=== PATIENT | female | born 1980 | race Caucasian/White ===

== ENCOUNTER → 2019-03-13 09:58 | Outpatient (CLI) | payer BC, SELFPAY ==
--- NOTE | ~2019-03-13 | XR_ITS ---
EXAMINATION: XR chest 2V 03/13/2019 10:38 INDICATION: Chest pain PROCEDURE: 2 view chest COMPARISON: 09/17/2018 FINDINGS: The lungs are clear. The cardiomediastinal silhouette is within normal limits. There are no pleural effusions. There is no pneumothorax suspected. IMPRESSION: 1: NO ACUTE CARDIOPULMONARY DISEASE. Reviewed, dictated and finalized at location B. 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
== END ==
PROVIDERS: PCP Family Medicine; Visit Provider Family Medicine
DX: R07.89 Other chest pain (principal)
CPT/HCPCS: 71046

== ENCOUNTER 2020-06-16 11:00 | Outpatient (CLI) | payer BC, SELFPAY | END 2020-06-16 11:01 | disposition home or self-care (01) | LOC: ANHCOVIDVC 11:00 | PROVIDERS: PCP Family Medicine | DX: Z23 Encounter for immunization (principal) | CPT/HCPCS: 0001A; 91300 ==

== ENCOUNTER 2020-07-07 11:01 | Outpatient (CLI) | payer BC, SELFPAY | END 2020-07-07 11:02 | disposition home or self-care (01) | LOC: ANHCOVIDVC 11:01 | PROVIDERS: PCP Family Medicine | DX: Z23 Encounter for immunization (principal) | CPT/HCPCS: 0002A; 91300 ==

== ENCOUNTER → 2021-01-27 08:47 | Outpatient (CLI) | payer BC, SELFPAY ==
[2021-01-27 13:20] LABS: Influenza Control Positive
== END ==
PROVIDERS: PCP Family Medicine; Visit Provider Nurse Practitioner Family
DX: R05.9 Cough, unspecified (principal); R09.89 Other specified symptoms and signs involving the circulatory and respiratory systems
CPT/HCPCS: 87804

== ENCOUNTER → 2021-01-27 14:20 | Outpatient (CLI) | payer BC, SELFPAY ==
--- NOTE | ~2021-01-27 | US_ITS ---
EXAMINATION: US thyroid DATE: 01/27/2021 15:00 INDICATION: Nontoxic goiter. TECHNIQUE: Multiple ultrasound images of the thyroid were obtained. COMPARISON: None. FINDINGS: The right thyroid lobe measures 4.7 x 1.5 x 1.4 cm. The left thyroid lobe measures 3.4 x 1.4 x 1.5 c m. There is normal echotexture and echogenicity throughout the thyroid gland. No discrete nodules id entified. Normal vascular flow is present. IMPRESSION: 1. Normal thyroid. Reviewed, dictated and finalized at location A. 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 Normal thyroid.
--- NOTE | ~2021-01-27 | MM_ITS ---
EXAMINATION: MM diagnostic sarah BI w louis HISTORY: Bilateral breast pain TECHNIQUE: ML, MLO and craniocaudal 3-D tomosynthesis images of both breasts were performed and synth etic 2-D images were generated. CAD analysis was submitted and interpreted. COMPARISON: None BREAST PARENCHYMAL COMPOSITION: There are scattered areas of fibroglandular density. FINDINGS: No suspicious mass or architectural distortion, malignant calcification, skin thickening or retraction is detected. IMPRESSION: 1. No mammographic evidence of malignancy 2. Routine mammographic screening is recommended. BI-RADS Category 1: Negative Reviewed, dictated and finalized at location A. 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
== END ==
PROVIDERS: PCP Family Medicine; Visit Provider Internal Medicine Endocrinology, Diabetes & Metabolism
DX: N64.4 Mastodynia (principal); E04.9 Nontoxic goiter, unspecified
CPT/HCPCS: 76536; 77062; 77066; G0279

== ENCOUNTER 2021-06-25 14:21 | Outpatient (RCR) | payer BC, SELFPAY ==
[2021-06-25 15:20] VITALS: BP 118/68; PULSE 90; RESP 20; TEMP 36.6; O2SAT 100
[2021-06-25] MEDS: diphenhydrAMINE HCl CAP 25 MG CAPSULE PO (15:22)
[2021-06-25] MEDS: ACETAMINOPHEN 325 MG TABLET 650 MG PO (15:22)
[2021-06-25] MEDS: FAMOTIDINE 20 MG TABLET PO (15:22)
[2021-06-25] MEDS: BEBTELOVIMAB 175 MG/2 ML VIAL IV PUSH (15:49)
[2021-06-25 16:33] VITALS: BP 112/69; PULSE 71; TEMP 36.4; O2SAT 99
== END 2021-06-25 16:00 ==
LOC: AMCINF 14:21
PROVIDERS: Referring Provider Family Medicine; Visit Provider Internal Medicine Hematology & Oncology
DX: U07.1 COVID-19 (principal)
CPT/HCPCS: A9270; M0222; Q0222

== ENCOUNTER → 2021-07-16 08:46 | Outpatient (CLI) | payer BC, SELFPAY ==
--- NOTE | ~2021-07-16 | XR_ITS ---
EXAMINATION: XR thoracic spine 2V DATE: 07/16/2021 09:14 INDICATION: Thoracic back pain TECHNIQUE: AP, lateral and lateral swimmer's views of the thoracic spine were obtained. COMPARISON: 09/17/2018 FINDINGS: There is no fracture, dislocation, or subluxation. The vertebral body heights, alignment, a nd intervertebral disc spaces are normal. IMPRESSION: 1. Unremarkable thoracic spine radiographs. Reviewed, dictated and finalized at location A.
== END ==
PROVIDERS: PCP Family Medicine; Visit Provider Family Medicine
DX: M54.6 Pain in thoracic spine (principal)
CPT/HCPCS: 72070

== ENCOUNTER 2021-08-19 14:42 | Outpatient (CLI) | payer BC, SELFPAY ==
--- NOTE | ~2021-08-19 | MR_ITS ---
EXAMINATION: MR thoracic spine wo con DATE: 08/19/2021 15:35 INDICATION: Right-sided back pain over one year. No trauma. TECHNIQUE: Magnetic resonance imaging (MRI) of the thoracic spine was performed without intravenous c ontrast. Sagittal localizer T1-weighted FSE of the cervical spine was obtained. Thoracic spine sequen elena included sagittal T2-weighted FSE, sagittal T1-weighted FSE, sagittal T2-weighted FS FSE, and axi al T2-weighted FSE. COMPARISON: X-ray thoracic spine, 07/16/2021 FINDINGS: No significant scoliosis. The marrow signal is benign and homogenous. Multiple small Schmor l's nodes. Vertebral bodies are aligned. Mild disc height loss, disc dehydration, and mild diffuse di sc bulges at T10-11 and T11-12. Vertebral body heights are intact. Mild multilevel facet arthropathy in the lower thoracic spine. The cord is normal in signal and caliber. Conus terminates at T12-L1. IMPRESSION: 1. Mild degenerative disc disease at T10-T11 and T11-12. 2. Mild lower thoracic facet arthropathy. Reviewed, dictated and finalized at location K.
== END 2021-08-19 14:43 ==
PROVIDERS: PCP Family Medicine; Visit Provider Nurse Practitioner Family
DX: M47.814 Spondylosis without myelopathy or radiculopathy, thoracic region (principal)
CPT/HCPCS: 72146

== ENCOUNTER 2021-08-24 12:30 | Outpatient (RCR) | payer BC, SELFPAY ==
--- NOTE | 2021-06-18 10:30 | PTOPEVAL ---
PHYSICAL THERAPY EVALUATION AND PLAN OF CARE 06-18-21 Thank you for referring Nicolette Vaughan to [facility] for the diagnosis of thoracic pain and chronic pain.? Nicolette is scheduled to be seen for therapy? 2 x/week for 4 weeks. Please review, sign, date and return this plan of care SREE. I agree with and certify that the following plan of care is medically necessary. Referring Physician Date Attending Provider: Nitin Navarrete MD Past Medical History Source of Past Medical History Patient Neurological History Hx Neurological Disorders No Significant History Cardiovascular History Hx Cardiac Disorders No Significant History Respiratory History Hx Respiratory Disorders No Significant History Gastrointestinal History Hx Gastrointestinal Disorders No Significant History Genitourinary History Hx Genitourinary Disorders No Significant History Musculoskeletal History Hx Back Pain Yes: chronic back and hip pain Hx Orthopedic Surgery Yes: L shoulder surgery-repair and clavicular resection Endocrine History Hx Endocrine Disorders No Significant History HEENT History Hx Other HEENT Disorders Yes: seasonal allergies Evaluation Information Diagnosis thoracic pain, chronic pain Onset about one year Subjective Information R rib pops in/out and usually Query Text:As Reported By Patient/ OK after few days-has happened Family forever, but past year hurts all time; gradual increase in pain and not going away; have had chiropractor adjustments, massage, accupuncture-- not helping; have changed work chair, position for sleeping, work out routines; had injections, 3x about year ago, between ribs and did not help; Diagnostic Tests X-Rays For This Problem Yes: in past:per pt:R hip issues-not in socket right MRI For This Problem No Other Tests For This Problem No Level of Function 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
--- NOTE | 2021-07-07 08:10 | PCPTNOTE ---
Patient called & cancelled scheduled appointment this date due to covid exposure.
--- NOTE | 2021-07-16 08:41 | PTOPEVAL ---
PHYSICAL THERAPY REEVALUATION AND UPDATED PLAN OF CARE 07-16-21 Refer to the clinical summary below, for her status today, compared to the initial evaluation. Her progress was limited, she only had 4 appointments, due to being ill with COVID. Continue PT treatment 1x/week for 6 weeks. Thank you for referring Nicolette Vaughan to [facility].? Please review, sign, date and return this plan of care SREE. I agree with and certify that the following plan of care is medically necessary. Referring Physician Date Attending Provider: Nitin Navarrete MD Subjective Information Nicolette reports: recovering Query Text:As Reported By Patient/ from [facility], am still tired, Family but better; feel like about the same as when started PT; do the home exercises; only had dry needling once, may have helped some but painful; have been going to massage therapist; to have xrays of her back today, delayed in getting done since ill; want to continue dry needling; is doing exercises with her ict trainer and does not really want to do them here; she has a high deductible and paying out of pocket at this time for her therapy treatments; Pain Assessment Pain Scale Pain Scale Used Numeric (1 - 10) Self Report Pain Assessment Right Spine, Thoracic Reported Pain Level 6 Pain Description Tightness Radicular Pain Location R lateral thoracic area tender to touch Pain Frequency Chronic,Continuous Other Pain Description more than bad ache, pinch at times, sharp at times Lowest Pain Intensity 4 Greatest Pain Intensity 6 Other Pain Aggravating Factors twisting trunk; taking deep breath;awaken 4-5 x/night with pain Pain Score Pain Score 6: Self Report Additional Pain Score Comments Oswestry self assessment score 24% limitation in activity level; also reports pain in neck, shoulder and low back; all muscles are tight and always sore; Interventions Used Interventions Used By Clinicians Education,Exercise Other Alleviating Interventions stretch, ice, sea salt bath soaks Thoracic/Lumbar Comments standing trunk ROM: extensi
--- NOTE | 2021-08-12 09:11 | PCPTNOTE ---
Patient did not show up for scheduled appointment this date.
--- NOTE | 2021-08-24 14:53 | PTOPEVAL ---
PHYSICAL THERAPY DISCHARGE NOTE Thank you for referring Nicolette Vaughan to [facility].? Please review, sign, date and return this plan of care SREE. I agree with and certify that the following plan of care is medically necessary. Referring Physician Date Status: Active Diagnosis thoracic pain, chronic pain Onset about one year Subjective Information Nicolette reports that she is Query Text:As Reported By Patient/ feels a little better overall. 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 She is not sure she finds dry needling to be very productive because she has a lot of post treatment soreness/pain. Self Report Pain Assessment Right Spine, Thoracic Reported Pain Level 4 Pain Description Tightness Radicular Pain Location R lateral thoracic area tender to touch Pain Frequency Chronic,Continuous Other Pain Description more than bad ache, pinch at times, sharp at times Lowest Pain Intensity 4 Greatest Pain Intensity 6 Other Pain Aggravating Factors twisting trunk; taking deep breath;awaken 4-5 x/night with pain Pain Score Pain Score 4: Self Report Interventions Used Interventions Used By Clinicians Education,Exercise Pain Relief Interventions Used By Position Change Patient Other Alleviating Interventions stretch, ice, sea salt bath soaks Cervical and Lumbar ROM Lumbar ROM Lumbar Comments standing trunk ROM: extension - increase pain in thoracic area; rotation to R slight pain increase; all ranges WNL and symmetrical Upper Extremity Range of Motion General Upper Extremity Range of Motion Gross Upper Extremity Range of Motion left shoulder internal Comments rotation limited compared to right but WNL Upper Extremity Muscle Strength Testing General Upper Extremity Strength Gross Upper Extremity Strength Comments functional thoracic strength testing:
== END 2021-08-25 09:02 | disposition home or self-care (01) ==
LOC: ANHPT 12:30
PROVIDERS: PCP Family Medicine; Visit Provider Family Medicine
DX: M54.6 Pain in thoracic spine (principal); G89.29 Other chronic pain
CPT/HCPCS: 97014; 97110; 97112; 97140; 97162; G0283

== ENCOUNTER 2021-11-05 15:32 | Emergency (ER) | payer BC, SELFPAY ==
[2021-11-05 15:44] VITALS: BP 135/97; PULSE 100; RESP 12; TEMP 35.9; O2SAT 100
[2021-11-05 15:46] VITALS: BP 135/97; PULSE 100; RESP 12; TEMP 35.9; O2SAT 100
--- NOTE | 2021-11-05 16:01 | ED.GENADULT ---
HPI - General Adult General Chief complaint: Dizziness Stated complaint: dizziness, nausea, headache History of Present Illness HPI narrative: 41 y/o female. PMHx MDD Seasonal allergies. Presents to [facility] clinic today with acute complaints of HONG, dizziness, left eye twitching, and nausea for the past 5 days. Client reports a generalized HONG, without closed head injury or falls. No fever, neck pain. No focal weakness or speech deficits. She describes and intermittent and 'throbbing' pain type sensation. In addition, she tells me she has felt dizzy 'like the room is spinning'. Worse with movement. No LOC. No visual changes, otalgia. No chest pain, palpitations, dyspnea. Positive nausea the initial few days, however she tells me her nausea is now gone, improved in last 48 hours. No abdominal pain. No vomiting or loose stool. Denies urinary concerns. Does endorse a hoarse voice & sore throat, no dysphagia. She tells me she has also recently had her Wellbutrin up-titrated in the past few weeks. Just 'does not feel right'. No additional acute c/o upon PE. Related Data Home Medications Medication Instructions Recorded Confirmed spironolactone 50 mg tablet 50 mg PO BID 03/17/21 11/05/21 triamcinolone acetonide 55 mcg 1 spray intranasal DAILY 11/05/21 11/05/21 nasal spray aerosol (Nasacort) Allergies Allergy/AdvReac Type Severity Reaction Status Date / Time Sulfa (Sulfonamide Allergy Unknown Unknown Verified 11/05/21 15:44 Antibiotics) Review of Systems Review of Systems: CONSTITUTIONAL: Denies fever, chills, sweats. EYES: Denies visual changes, redness, discharge. ENT: Denies rhinorrhea, congestion, otalgia. Positive hoarse voice and sore throat. CARDIOVASCULAR: Denies chest pain, palpitations, edema. RESPIRATORY: Denies dyspnea, wheezing, cough GASTROINTESTINAL: Interval Nausea. Denies abdominal pain,vomiting, diarrhea. GENITOURINARY: Denies dysuria, hematuria, abnormal discharge SKIN: Denies rash or itching. MUSCULOSKELETAL: Denies acute back pain, joint pain, or myalgia. NEUROLOGIC: HONG, Dizziness. Denies numbness, or focal weakness. PSYCHIATRIC: Denies anxiety or depression. [facility] Past Medical History Medical History Abdominal pain Abnormal Pap smear of cervix 08/05/2015 - LGSIL/HPV+; 04/21/16 ascus (+) hpv; 01/27/17 (+) hpv; 02-05-19 LSIL(+) hpv 02/01/2020 +hpv; 02/11/2021 Lgsil +hpv Abnormal serum iron level total iron 164 with 47% saturation and ferritin 120 with hemoglobin 14.3 on 12/23/2020. Acute bronchitis Allergies Atypical chest pain BMI 31.0-31.9,adult BMI 32.0-32.9,adult Cellulitis Chest congestion Chronic anxiety Chronic thoracic back pain X-ray of the thoracic spine 07/16/2021 unremarkable. Cough COVID-19 (06/22/21) positive home test 06/24/2021. Fully vaccinated. Elevated liver enzymes AST normal at 25 with ALT slightly elevated at 31 on 12/23/2020 Encounter for IUD insertion 02/17/12 02/10/17 Encounter for IUD removal 02/10/17 Encounter for wellness examination in adult Hirsutism History of PCR DNA positive for HSV2 Hypercholesterolemia with hyperglyceridemia Mixed hyperlipidemia Total cholesterol 223, triglycerides 378, HDL 50, LDL 119 on 12/23/2020 Obesity (BMI 30.0-34.9) Ovarian cyst Polyp of colon abnormal colon polyp age 33 Dr. Fisher Seasonal allergic rhinitis Seborrheic eczema of scalp Shortness of breath Tobacco abuse Vaping nicotine. Surgical History Surgical History H/O shoulder surgery 04/29/15 lt shoulder bone spurs 03/2014 lt shoulder History of colonoscopy with polypectomy 07-05-2013 polyps and internal hemorrhoids (recommendation to repeat in 5 years), flat polyps - proximal ascending colon, transverse colon and distal sigmoid colon; internal hemorrhoids History of colposcopy with cervical biopsy
== END 2021-11-05 16:42 | disposition short-term general hospital (02) ==
PROVIDERS: Emergency Provider Nurse Practitioner Adult Health; PCP Family Medicine
DX: R42 Dizziness and giddiness (principal); E78.2 Mixed hyperlipidemia; E66.9 Obesity, unspecified; Z68.32 Body mass index [BMI] 32.0-32.9, adult; Z86.16 Personal history of COVID-19
CPT/HCPCS: 87426; 99213; C9803; G0463

== ENCOUNTER 2021-11-05 17:06 | Emergency (ER) | payer BC, SELFPAY ==
[2021-11-05] VITALS (13 sets, daily range): BP systolic 105–140; BP diastolic 65–88; PULSE 67–102; RESP 11–26; TEMP 36.6; O2SAT 97–100
[2021-11-05 18:18] LABS: Basophils Absolute Auto 0.1 K/mm3 (0.0-0.1); Basophils Percent Auto 0.7 % (0.2-1.2); Eosinophils Absolute Auto 0.2 K/mm3 (0-0.3); Eosinophils Percent Auto 2.2 % (0-4.4); Hematocrit 43.7 % (37.0-47.0); Hemoglobin 15.1 g/dL (12.0-15.0); Immature Granulocyte Absolute 0.02 K/mm3 (0.00-0.031); Immature Granulocyte Percent A 0.3 % (0-0.5); Lymphocytes Percent Auto 22.2 % (18.3-44.2); Mean Corpuscular HGB Conc 34.6 g/dl (32-36); Mean Corpuscular Hemoglobin 32.4 pg (26-34); Mean Corpuscular Volume 93.8 fl (80-100); Mean Platelet Volume 9.4 fl (7.4-10.4); Monocytes Absolute Auto 0.5 K/mm3 (0.1-0.6); Monocytes Percent Auto 7.5 % (2.6-8.5); Neutrophils Absolute Auto 4.8 K/mm3 (1.3-6.7); Neutrophils Percent Auto 67.1 % (45.5-73.1); Platelet Count Result 354 k/mm3 (150-375); Red Blood Count 4.66 M/mm3 (4.2-5.4); Red Cell Distribution Width 11.9 % (11.5-14.5); White Blood Count 7.2 K/mm3 (4.5-10.0)
[2021-11-05 18:29] LABS: Alanine Aminotransferase 38 U/L (6-35); Albumin Level 4.8 g/dL (3.5-5.1); Alkaline Phosphatase 65 U/L (38-126); Anion Gap 10 mmol/L (8-16); Aspartate Amino Transferase 35 U/L (14-36); Bilirubin,Total 0.5 mg/dL (0.2-1.3); Blood Urea Nitrogen 13 mg/dL (7-17); Calcium 9.6 mg/dL (8.4-10.2); Carbon Dioxide 23 mmol/L (22-30); Chloride 105 mmol/L (98-107); Estimated CRCL calculation 69 ml/min; Estimated Glomerular Filt Rate > 60; Glucose 94 mg/dL (65-110); Lipase 133 U/L (23-300); Sodium 138 mmol/L (137-145)
[2021-11-05 19:15] LABS: Appearance Urine Cloudy (Clear); Bilirubin Urine 1+ (Negative); Blood Urine Trace-lysed (Negative); Color Urine Yellow (Yellow); Glucose Urine UA Negative (Negative); Ketones Urine Negative (Negative); Leukocyte Esterase Ur 1+ LEU/UL (Negative); Nitrate Urine Negative (Negative); Protein Urine Trace mg/dL (Negative); Specific Grav Ur >= 1.030 (1.001-1.035); Urobilinogen Urine 0.2 mg/dL (<2.0); pH Urine 5.5 (5.0-9.0)
[2021-11-05 19:23] LABS: Bacteria Urine Trace /hpf; Mucus Urine Moderate /lpf; Squamous Epithelial Cell Urine Many /hpf (Few); WBC Urine 31-50 /hpf
[2021-11-05 19:25] LABS: Add Urine Microscopic? YES
[2021-11-05] MEDS: SODIUM CHLORIDE 0.9% IV 1,000 ML 999 ML IV CONT (20:02)
[2021-11-05] MEDS: ONDANSETRON INJ 4 MG/2 ML VIAL IV PUSH (20:02)
--- NOTE | 2021-11-05 20:39 | ED.GENADULT ---
HPI - General Adult General Chief complaint: Dizziness Stated complaint: dizzy, nausea Time Seen by Provider: 11/05/21 19:05 History of Present Illness HPI narrative: Patient is a 41-year-old female who presents ER with dizziness. Intermittent over the last 2 to 3 days. Has been eating and drinking without issue. She will become nauseated. Not spinning in nature. No chest pain or chest pressure. Reports mild cough with fatigue. No sinus congestion or sore throat. No documented fevers. No alleviating factors. Related Data Home Medications Medication Instructions Recorded Confirmed spironolactone 50 mg tablet 50 mg PO BID 03/17/21 11/05/21 triamcinolone acetonide 55 mcg 1 spray intranasal DAILY 11/05/21 11/05/21 nasal spray aerosol (Nasacort) Allergies Allergy/AdvReac Type Severity Reaction Status Date / Time Sulfa (Sulfonamide Allergy Unknown Unknown Verified 11/05/21 17:49 Antibiotics) Review of Systems Review of Systems: All systems reviewed & are unremarkable except as noted in HPI and below Constitutional: Constitutional: Denies chills, Reports fatigue and Denies fever(s) ENT: Denies nasal congestion and Reports sore throat Cardiovascular: Cardiovascular: Denies chest pain and Denies radiating jaw, neck or arm pain Respiratory: Respiratory: Reports cough, Denies dyspnea and Denies wheezing Gastrointestinal: Gastrointestinal: Denies abdominal pain, Denies diarrhea, Reports nausea and Denies vomiting Neurologic: Reports dizziness and Denies syncope [facility] Past Medical History Medical History Abdominal pain Abnormal Pap smear of cervix 08/05/2015 - LGSIL/HPV+; 04/21/16 ascus (+) hpv; 01/27/17 (+) hpv; 02-05-19 LSIL(+) hpv 02/01/2020 +hpv; 02/11/2021 Lgsil +hpv Abnormal serum iron level total iron 164 with 47% saturation and ferritin 120 with hemoglobin 14.3 on 12/23/2020. Acute bronchitis Allergies Atypical chest pain BMI 31.0-31.9,adult BMI 32.0-32.9,adult Cellulitis Chest congestion Chronic anxiety Chronic thoracic back pain X-ray of the thoracic spine 07/16/2021 unremarkable. Cough COVID-19 (06/22/21) positive home test 06/24/2021. Fully vaccinated. Elevated liver enzymes AST normal at 25 with ALT slightly elevated at 31 on 12/23/2020 Encounter for IUD insertion 02/17/12 02/10/17 Encounter for IUD removal 02/10/17 Encounter for wellness examination in adult Hirsutism History of PCR DNA positive for HSV2 Hypercholesterolemia with hyperglyceridemia Mixed hyperlipidemia Total cholesterol 223, triglycerides 378, HDL 50, LDL 119 on 12/23/2020 Obesity (BMI 30.0-34.9) Ovarian cyst Polyp of colon abnormal colon polyp age 33 Dr. Fisher Seasonal allergic rhinitis Seborrheic eczema of scalp Shortness of breath Tobacco abuse Vaping nicotine. Surgical History Surgical History H/O shoulder surgery 04/29/15 lt shoulder bone spurs 03/2014 lt shoulder History of colonoscopy with polypectomy 07-05-2013 polyps and internal hemorrhoids (recommendation to repeat in 5 years), flat polyps - proximal ascending colon, transverse colon and distal sigmoid colon; internal hemorrhoids History of colposcopy with cervical biopsy 03/09/1708/2015 History of gynecologic surgery 10/13 cervical acid wash Family History Family History Mother Family history of thyroid disease Father Hypertension Diabetes mellitus Social History Social History Smoking status: Never smoker Tobacco type: e-cigarettes/vaping Smoking end date: 02/28/01 Alcohol intake: current Alcohol use details: Pt drinks weekly. 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
[2021-11-05] MEDS: KETOROLAC 30 MG/ML VIAL (*BKC) IV PUSH (21:11)
[2021-11-05 21:26] LABS: SARS-CoV-2 RNA PCR Negative
[2021-11-05] MEDS: CEPHALEXIN 500 MG CAPSULE PO (21:52)
== END 2021-11-05 22:00 | disposition home or self-care (01) ==
PROVIDERS: Emergency Medicine; Emergency Provider Emergency Medicine; PCP Family Medicine
DX: N39.0 Urinary tract infection, site not specified (principal); Z20.822 Contact with and (suspected) exposure to COVID-19; E78.2 Mixed hyperlipidemia; E66.9 Obesity, unspecified; Z68.33 Body mass index [BMI] 33.0-33.9, adult; L68.0 Hirsutism; F41.9 Anxiety disorder, unspecified; Z86.16 Personal history of COVID-19; Z86.010 Personal history of colon polyps; Z87.891 Personal history of nicotine dependence
CPT/HCPCS: 36415; 80053; 81001; 81025; 83690; 85025; 87086; 87088; 96361; 96374; 96375; 99284; A9270; C9803; J1885; J2405; J7030; U0003; U0005

== ENCOUNTER → 2022-04-15 13:45 | Outpatient (CLI) | payer BC, SELFPAY ==
--- NOTE | ~2022-04-15 | MM_ITS ---
EXAMINATION: MM screening sarah BI w louis HISTORY: Screening mammogram TECHNIQUE: Craniocaudal and mediolateral oblique 3-D tomosynthesis images were obtained and synthetic 2-D images were generated. CAD analysis was submitted and interpreted. COMPARISON: 01/27/2021, 06/09/2015 bilateral mammogram examinations BREAST PARENCHYMAL COMPOSITION: There are scattered areas of fibroglandular density. FINDINGS: There is no evidence of suspicious mass, calcification, or architectural distortion to sugg est malignancy in either breast. There has been no suspicious interval change. IMPRESSION: 1. No mammographic evidence of malignancy. 2. Recommend routine screening mammography in one year. BI-RADS Category 1: Negative Reviewed, dictated and finalized at location A. 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
== END ==
PROVIDERS: PCP Family Medicine; Visit Provider Obstetrics & Gynecology
DX: Z12.31 Encounter for screening mammogram for malignant neoplasm of breast (principal)
CPT/HCPCS: 77063; 77067

== ENCOUNTER 2022-09-17 00:20 | Day surgery (SDC) | payer BC, SELFPAY ==
[2022-09-06 13:51] VITALS: BMI 29.5
--- NOTE | 2022-09-16 18:59 | PM.HPGS ---
History of Present Illness History of Present Illness Consent: Risks, benefits, and alternatives have been discussed and questions answered. Patient agrees to proceed with procedure. Chief complaint: colon polyp Narrative: Nicolette Vaughan is a 42 year old female Who has a history of polyps. Also her paternal grandmother had colon cancer Review of Systems Review of Systems: All systems reviewed & are unremarkable except as noted in HPI and below PMFSH Past Medical History Medical History Abdominal pain Abnormal Pap smear of cervix 08/05/2015 - LGSIL/HPV+; 04/21/16 ascus (+) hpv; 01/27/17 (+) hpv; 02-05-19 LSIL(+) hpv 02/01/2020 +hpv; 02/11/2021 Lgsil +hpv Abnormal serum iron level total iron 164 with 47% saturation and ferritin 120 with hemoglobin 14.3 on 12/23/2020. iron 142 with 41% saturation and ferritin 112 on 01/28/2022. Acute bronchitis Allergies Asthma Atypical chest pain BMI 31.0-31.9,adult BMI 32.0-32.9,adult Cellulitis Chest congestion Chronic anxiety Chronic thoracic back pain X-ray of the thoracic spine 07/16/2021 unremarkable. Cough COVID-19 (06/22/21) positive home test 06/24/2021. Fully vaccinated. COVID-19 (02/04/22) 2nd episode tested positive 02/08/2022. Elevated liver enzymes AST normal at 25 with ALT slightly elevated at 31 on 12/23/2020 Encounter for IUD insertion 02/17/12 02/10/17 Encounter for IUD removal 02/10/17 Encounter for wellness examination in adult Bjorn's thyroiditis TSH 4.94, free T4 1.2, T3 total 4.0 on 01/28/2022 , Dr. Arreola. Hirsutism Testosterone level 25 on 01/28/2022. History of PCR DNA positive for HSV2 Hypercholesterolemia with hyperglyceridemia Mixed hyperlipidemia Total cholesterol 223, triglycerides 378, HDL 50, LDL 119 on 12/23/2020. Cholesterol 250, triglycerides 354, HDL 57, LDL 139 with ratio of 4.4 on 01/28/2022. Obesity (BMI 30.0-34.9) Ovarian cyst Polyp of colon colon polyps on 07/05/2013 Dr. Fisher Screening mammogram, encounter for Normal mammogram 04/15/2022. Seasonal allergic rhinitis Seborrheic eczema of scalp Shortness of breath Tobacco abuse Vaping nicotine. Vitamin B12 deficiency level low at 280 on 01/28/2022. Surgical History Surgical History H/O shoulder surgery 04/29/15 lt shoulder bone spurs 03/2014 lt shoulder History of colonoscopy with polypectomy 07-05-2013 polyps and internal hemorrhoids (recommendation to repeat in 5 years), flat polyps - proximal ascending colon, transverse colon and distal sigmoid colon; internal hemorrhoids History of colposcopy with cervical biopsy 03/09/1708/2015 History of gynecologic surgery 10/13 cervical acid wash Family History Family History Mother Family history of thyroid disease Father Hypertension Diabetes mellitus Social History Social History Smoking packs per day: 0.5 Smoking cigarettes per day: 10.0 Years smoked: 15 Smoking pack-years: 7.50 Smoking status: Former smoker Tobacco type: cigarettes Smoking end date: 02/28/01 Alcohol intake: current Drinks per week: 2 Alcohol use details: Pt drinks weekly. 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
--- NOTE | 2022-09-17 07:30 | WPDANESEPPF ---
Anes - Initial Pre Proc Eval Procedure: Operation Date: 09/17/22 08:30 Proposed Procedures p Colonoscopy - Ghulam Elias MD Date/Time: 09/17/22 07:30 Surgeon: Ghulam Elias MD Pre Op Diagnosis: colon polyp Patient Data Age: 42 Gender: F Height: 1.55 m Weight: 71 kg Allergies Allergy/AdvReac Type Severity Reaction Status Date / Time Sulfa (Sulfonamide Allergy Unknown rash Verified 09/17/22 07:40 Antibiotics) Home Medications Medication Instructions Recorded Confirmed Type albuterol sulfate 90 mcg/actuation 2 puff inhalation Q4-6H PRN 02/16/19 09/17/22 Rx aerosol inhaler (ProAir HFA) bronchospasm #8.5 grams cyanocobalamin (vitamin B-12) 1,000 mcg IM WEEKLY 04/01/22 09/17/22 History 1,000 mcg/mL injection kit levonorgestrel 21 mcg/24 hours (8 1 device intrauterine ONCE 04/01/22 09/17/22 History yrs) 52 mg intrauterine device (Mirena) phentermine 15 mg capsule 15 mg PO QAM 04/01/22 09/17/22 History spironolactone 50 mg tablet 100 mg PO QAM 04/01/22 09/17/22 History bupropion HCl 150 mg 24 hr tablet, 150 mg PO QAM #30 tabs 06/24/22 09/17/22 Rx extended release (Wellbutrin XL) Patient hx anesthesia problems: none Family hx anesthesia problems: none Results Review: All pre-operative results and documents have been reviewed as part of the pre-operative evaluation. [facility] Past Medical History Medical History (Updated 09/17/22 @ 07:31 by Yohan Sr MD) Abdominal pain Abnormal Pap smear of cervix 08/05/2015 - LGSIL/HPV+; 04/21/16 ascus (+) hpv; 01/27/17 (+) hpv; 02-05- LSIL(+) hpv 02/01/2020 +hpv; 02/11/2021 Lgsil +hpv Abnormal serum iron level total iron 164 with 47% saturation and ferritin 120 with hemoglobin 14.3 on 12/23/2020. iron 142 with 41% saturation and ferritin 112 on 01/28/2022. Acute bronchitis Allergies Asthma Atypical chest pain BMI 31.0-31.9,adult BMI 32.0-32.9,adult Cellulitis Chest congestion Chronic anxiety Chronic thoracic back pain X-ray of the thoracic spine 07/16/2021 unremarkable. Cough COVID-19 (06/22/21) positive home test 06/24/2021. Fully vaccinated. COVID-19 (02/04/22) 2nd episode tested positive 02/08/2022. Elevated liver enzymes AST normal at 25 with ALT slightly elevated at 31 on 12/23/2020 Encounter for IUD insertion 02/17/12 02/10/17 Encounter for IUD removal 02/10/17 Encounter for wellness examination in adult Bjorn's thyroiditis TSH 4.94, free T4 1.2, T3 total 4.0 on 01/28/2022 , Dr. Arreola. Hirsutism Testosterone level 25 on 01/28/2022. History of PCR DNA positive for HSV2 Hypercholesterolemia with hyperglyceridemia Mixed hyperlipidemia Total cholesterol 223, triglycerides 378, HDL 50, LDL 119 on 12/23/2020. Cholesterol 250, triglycerides 354, HDL 57, LDL 139 with ratio of 4.4 on 01/28/2022. Obesity (BMI 30.0-34.9) Ovarian cyst Polyp of colon colon polyps on 07/05/2013 Dr. Fisher Screening mammogram, encounter for Normal mammogram 04/15/2022. Seasonal allergic rhinitis Seborrheic eczema of scalp Shortness of breath Tobacco abuse Vaping nicotine. Vitamin B12 deficiency level low at 280 on 01/28/2022. Surgical History Surgical History H/O shoulder surgery 04/29/15 lt shoulder bone spurs 03/2014 lt shoulder History of colonoscopy with polypectomy 07-05-2013 polyps and internal hemorrhoids (recommendation to repeat in 5 years), flat polyps - proximal ascending colon, transverse colon and distal sigmoid colon; internal hemorrhoids History of colposcopy with cervical biopsy 03/09/1708/2015 History of gynecologic surgery 10/13 cervical acid wash Family History Family History Mother Family history of thyroid disease Father Hypertension Diabetes mellitus Social History Social History (Updated 06/24/22 @ 11:11 by Isabella Campoverde MA) Smoking packs per day: 0.5 Smoking cigarett
[2022-09-17 07:35] VITALS: BP 114/82; PULSE 81; RESP 18; TEMP 36.3; O2SAT 99; BMI 29.0
[2022-09-17] MEDS: LACTATED RINGERS 1,000 ML 150 ML IV CONT (07:54)
[2022-09-17 08:36] VITALS: BP 100/67; PULSE 96; RESP 23; O2SAT 95
[2022-09-17 08:46] VITALS: BP 113/73; PULSE 88; RESP 23; O2SAT 99
[2022-09-17 08:56] VITALS: BP 112/74; PULSE 66; RESP 21; O2SAT 99
== END 2022-09-17 09:04 | disposition home or self-care (01) ==
PROVIDERS: PCP Family Medicine; Visit Provider Internal Medicine Gastroenterology
PROC: 0DJD8ZZ Inspection of Lower Intestinal Tract, Via Natural or Artificial Opening Endoscopic (ICD-10-PCS; CPT 45378; principal; 2022-09-17 08:30)
DX: Z12.11 Encounter for screening for malignant neoplasm of colon (principal); K57.30 Diverticulosis of large intestine without perforation or abscess without bleeding; Z86.010 Personal history of colon polyps; J45.909 Unspecified asthma, uncomplicated; E06.3 Autoimmune thyroiditis; F41.9 Anxiety disorder, unspecified; L68.0 Hirsutism; E78.00 Pure hypercholesterolemia, unspecified; E78.1 Pure hyperglyceridemia; E53.8 Deficiency of other specified B group vitamins; Z87.891 Personal history of nicotine dependence; Z79.51 Long term (current) use of inhaled steroids
CPT/HCPCS: 45378; J2704; J7120

== ENCOUNTER 2023-01-26 08:47 | Outpatient (CLI) | payer BC, SELFPAY ==
--- NOTE | 2023-02-16 06:52 | WPDHOMESLEEP ---
Sleep Study - Home Unattended Date of Study: 01/26/23 Ordering Provider: Nitin Navarrete MD Interpreting Provider: Olimpia Saenz, DO Home Sleep Study Type: Watch PAT Height: 1.55 m Weight: 70.307 kg Body Mass Index: 29.2 Neck Circumference (inches): 13.5 [place]: 3 Reason for Sleep Study Difficulty falling and staying asleep Sleep History The patient is a 42-year-old female that had a sleep study ordered her primary care physician for evaluation of sleep apnea. 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 She rarely awakens from sleep short of breath. She occasionally awakens at night with heartburn, belching or cough. She rarely snores but it is never loud enough that others complain. She frequently has trouble sleeping when she has a cold. She rarely wakes up gasping for air throughout the night. She rarely has breathing problems at night observed by herself or others. She frequently sweats excessively at night. She occasionally has heart palpitations or irregular heartbeats during the night. She rarely falls asleep during the day but never while driving. She denies sleep paralysis and cataplexy. She occasionally has trouble at school or work due to sleepiness. She occasionally experiences vivid dreamlike scenes upon awakening or falling asleep. She denies feeling afraid of going to sleep. She rarely has nightmares. She frequently remembers her dreams. She frequently has thoughts racing through her mind. She rarely feels sad or depressed. She occasionally has anxiety. She occasionally has muscular tension. She rarely notices parts of her body jerk. She denies kicking during the night. She rarely has crawling and aching feelings in her legs and rarely has leg pain during the night. She occasionally grinds her teeth during sleep but rarely awakens with morning jaw pain. She is frequently bothered by pain during the day and frequently awakened by pain during the night. He frequently wakes up feeling stiff the morning. She frequently wakes up with sore or achy muscles. She frequently wakes up with pain in the neck, spine or other joints. She goes to bed at 10:00 p.m. on both weekdays and weekends. It takes her 30-60 minutes to fall asleep. She wakes up 3-4 times throughout the night to urinate and is able to fall back asleep within 30 minutes. She wakes up at 7:00 a.m. on weekdays and 9:00 a.m. on the weekends. She typically gets 6-7 hours of sleep per night. She will stay in bed for 10 minutes after waking up in the morning. She currently lives with her child. She denies consuming any caffeinated beverages within 2 hours of bedtime. She denies engaging in physical exercise before bedtime. She will watch television before falling asleep. She denies taking naps in afternoon or the evening. She consumes 2 cups of caffeinated coffee per day. She consumes 3-4 alcoholic beverages on 1 night per week. She denies tobacco and recreational drug use. [facility] Past Medical History Medical History Abdominal pain Abnormal Pap smear of cervix 08/05/2015 - LGSIL/HPV+; 04/21/16 ascus (+) hpv; 01/27/17 (+) hpv; 02-05-19 LSIL(+) hpv 02/01/2020 +hpv; 02/11/2021 Lgsil +hpv Abnormal serum iron level total iron 164 with 47% saturation and ferritin 120 with hemoglobin 14.3 on 12/23/2020. iron 142 with 41% saturation and ferritin 112 on 01/28/2022. Acute bronchitis Allergies Asthma Atypical chest pain BMI 30.0-30.9,adult BMI 31.0-31.9,adult BMI 32.0-32.9,adult Cellulitis Chest congestion Chronic anxiety Chronic thoracic back pain X-ray of the thoracic spine 07/16/2021 unremarkable. Cough COVID-19 (06/22/21) positive home test 06/24/2021. Fully vaccinated. COVID-19 (02/04/22) 2nd episode tested positive 02/08/2022. Elevated liver enzymes AST normal at 25 with ALT slightly elevated at 31 on 12/23/2020 Encounter for IUD insertion 02/17/12 02/10/17 Encounter for I
[2023-02-16 07:01] VITALS: BMI 29.2
== END 2023-01-28 08:00 | disposition home or self-care (01) ==
LOC: ANHCSM 08:47
PROVIDERS: PCP Family Medicine; Visit Provider Family Medicine
DX: G47.00 Insomnia, unspecified (principal); G47.9 Sleep disorder, unspecified
CPT/HCPCS: 95800

== ENCOUNTER 2023-05-13 12:28 | Outpatient (CLI) | payer BC, SELFPAY ==
--- NOTE | ~2023-05-13 | MM_ITS ---
EXAMINATION: MM screening sarah BI w louis HISTORY: Screening mammogram TECHNIQUE: Craniocaudal and mediolateral oblique 3-D tomosynthesis images were obtained and synthetic 2-D images were generated. CAD analysis was submitted and interpreted. COMPARISON: April 15, 2022 bilateral screening mammogram January 27, 2021 diagnostic bilateral mammogram BREAST PARENCHYMAL COMPOSITION: There are scattered areas of fibroglandular density. FINDINGS: There is no evidence of suspicious mass, calcification, or architectural distortion to sugg est malignancy in either breast. There has been no suspicious interval change. IMPRESSION: 1. No mammographic evidence of malignancy. 2. Recommend routine screening mammography in one year. BI-RADS Category 1: Negative Reviewed, dictated and finalized at location A.
== END 2023-05-13 12:29 ==
PROVIDERS: PCP Family Medicine; Visit Provider Obstetrics & Gynecology
DX: Z12.31 Encounter for screening mammogram for malignant neoplasm of breast (principal)
CPT/HCPCS: 77063; 77067

== ENCOUNTER 2023-09-12 12:46 | Outpatient (CLI) | payer BC, SELFPAY ==
[2023-09-12 14:19] LABS: D Dimer < 0.27 ug/mL (<0.48)
== END 2023-09-12 12:47 | disposition home or self-care (01) ==
PROVIDERS: PCP Family Medicine; Visit Provider Family Medicine
DX: M79.89 Other specified soft tissue disorders (principal)
CPT/HCPCS: 36415; 85380

== ENCOUNTER 2023-09-14 09:09 | Outpatient (CLI) | payer BC, SELFPAY ==
--- NOTE | ~2023-09-14 | US_ITS ---
EXAMINATION:US venous doppler LE RT INDICATION:Right calf swelling TECHNIQUE: Multiple grayscale, color flow and Doppler images of the right lower extremity deep venous systems were obtained and reviewed. COMPARISON:No prior studies for comparison. FINDINGS: The common femoral, superficial femoral and popliteal veins demonstrate normal respiratory variation, augmentation and compressibility. Color flow is also seen within the posterior tibial, pe roneal, greater saphenous and profunda veins. IMPRESSION: 1: No lower extremity deep venous thrombosis. Reviewed, dictated and finalized at location B.
== END 2023-09-14 09:10 | disposition home or self-care (01) ==
PROVIDERS: PCP Family Medicine; Visit Provider Family Medicine
DX: M79.89 Other specified soft tissue disorders (principal)
CPT/HCPCS: 93971

== ENCOUNTER 2024-04-24 09:50 | Outpatient (CLI) | payer BC, SELFPAY ==
--- NOTE | ~2024-04-24 | US_ITS ---
EXAMINATION: US pelvic complete w TV DATE: 04/24/2024 10:17 INDICATION: Two-week follow-up of ovarian cyst. TECHNIQUE: Multiple transabdominal and endovaginal sonographic images of the pelvis were obtained. COMPARISON: 04/11/2024 FINDINGS: The uterus measures 8.4 x 3.8 x 3.5 cm. The endometrial complex measures 5 mm in thickness. Linear e chogenic and shadowing likely IUD within the endometrial canal. 7 mm anechoic nabothian cyst at the c ervix. The right ovary measures 2.4 x 1.9 x 1.1 cm. The left ovary measures 4.8 x 4.2 x 4.5 cm. There are couple anechoic simple appearing cysts measuring 4.3 x 3.8 x 3.6 and 1.9 x 1.4 x 2.2 cm in the l eft ovary. Vascular flow identified at both ovaries on color Doppler. There is no free fluid in the p brice. IMPRESSION: 1. A couple simple appearing left ovarian cysts the larger measuring 4.3 cm and the smaller 2.2 cm. 2. IUD in expected position within the endometrial canal. Reviewed, dictated and finalized at location B. 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
== END 2024-04-24 09:51 | disposition home or self-care (01) ==
PROVIDERS: PCP Family Medicine; Visit Provider Obstetrics & Gynecology
DX: N83.202 Unspecified ovarian cyst, left side (principal); Z97.5 Presence of (intrauterine) contraceptive device
CPT/HCPCS: 76830; 76856

== ENCOUNTER 2024-05-15 12:30 | Outpatient (CLI) | payer BC, SELFPAY ==
--- NOTE | ~2024-05-15 | MM_ITS ---
EXAMINATION: MM screening sarah BI w louis HISTORY: Screening TECHNIQUE: Craniocaudal and mediolateral oblique 3-D tomosynthesis images were obtained and synthetic 2-D images were generated. CAD analysis was submitted and interpreted. COMPARISON: Comparison to multiple prior studies sequentially, with oldest reviewed study dated 06/08. BREAST PARENCHYMAL COMPOSITION: Not dense: There are scattered areas of fibroglandular density. FINDINGS: There is no evidence of suspicious mass, calcification, or architectural distortion to sugg est malignancy in either breast. There has been no suspicious interval change. IMPRESSION: 1. No mammographic evidence of malignancy. 2. Recommend routine screening mammography in one year. BI-RADS Category 1: Negative Reviewed, dictated and finalized at location B.
== END 2024-05-15 12:31 | disposition home or self-care (01) ==
LOC: MICIMG 12:31
PROVIDERS: PCP Family Medicine; Visit Provider Obstetrics & Gynecology
DX: Z12.31 Encounter for screening mammogram for malignant neoplasm of breast (principal)
CPT/HCPCS: 77063; 77067

== ENCOUNTER 2024-05-21 13:27 | Outpatient (CLI) | payer BC, SELFPAY ==
[2024-05-21 14:11] LABS: Hematocrit 37.8 % (37.0-47.0); Mean Corpuscular HGB Conc 34.4 g/dl (32-36); Mean Corpuscular Hemoglobin 32.2 pg (26-34); Mean Corpuscular Volume 93.6 fl (80-100); Mean Platelet Volume 9.6 fl (7.4-10.4); Platelet Count Result 311 k/mm3 (150-375); Red Blood Count 4.04 M/mm3 (4.2-5.4); Red Cell Distribution Width 11.6 % (11.5-14.5); White Blood Count 6.5 K/mm3 (4.5-10.0)
--- OUTSIDE RECORDS SUMMARY | 2024-05-21 15:27 | XMS_ITS | Clinical Summary ---
Author Organization [facility] [address] Address [address] [place] [id number] Care Team Providers Care Agricultural Service Worker Name Role Phone Nitin Navarrete MD Primary Care Provider [phone] Allergies Active Allergy Reactions Criticality Noted Date Comments Sulfa (Sulfonamide Antibiotics) Medications HYDROcodone-gus taminophen (NORCO) 5-325 mg per tablet take 1 tablet by oral route every 6 hours as needed for pain 30 0 5 Active docusate sodium (COLACE) 100 mg capsule take 1 capsule (100MG) by oral route every day at bedtime as needed 30 0 6 Active Additional Information Patient not taking.Reported on 03/04/2023 Active Problems Problem Noted Date Diagnosed Date Mass of breast 06/06/2015 Arthralgia of shoulder 03/06/2015 Family History Medical History Relation Name Comments Hypertension Father Family history of hypertension - (Added by TW Conv) Hypertension Other Family history of Hypertension; Relation Name Status Comments Father Other Social History Tobacco Use Types Packs/Day Years Used Date Smoking Tobacco: Never Comments Unknown Sex and Gender Information Value Date Recorded Sex Assigned at Not on file Legal Sex Female 3:52 AM REFRIGERATION PERSON Gender Identity Not on file Sexual Orientation Not on file Obstetrics History Last Filed Vital Signs Vital Sign Reading Time Taken Comments Blood Pressure 110/70 03/04/2023 11:14 AM REFRIGERATION PERSON Pulse 98 03/04/2023 11:14 AM REFRIGERATION PERSON Temperature 37.4 C (99.3 F) 03/04/2023 11:14 AM REFRIGERATION PERSON Respiratory Rate 22 03/04/2023 11:14 AM REFRIGERATION PERSON Oxygen Saturation 99% 03/04/2023 11:14 AM REFRIGERATION PERSON Inhaled Oxygen Concentration - - Weight 73 kg (160 lb 14.4 oz) 03/04/2023 11:14 A M REFRIGERATION PERSON Height 154.9 cm (5' 1 ) 03/04/2023 11:14 AM REFRIGERATION PERSON Body Mass Index 30.4 03/04/2023 11:14 AM REFRIGERATION PERSON Plan of Treatment Health Maintenance Due Date Last Done Comments Cervical Cancer Screening 1980 Depression Screening 1980 Hepatitis C Screening 1980 Varicella Vaccines (1 of 2 - 13+ 2-dose series) 1993 Hepatitis B Screening 1998 Regular Well Visit/Exam 18-64 1998 Breast Cancer Screening-Mammogram 06/08/2016 06/09/2015 Covid-19 Vaccine (2023-2 5 season) 2023 03/02/2021, 07/07/2020, 06/16/2020 Influenza Vaccine (#1) 2023 , 12/25/2018 DTaP/Tdap/Td Vaccine (2 - Td or Tdap) 12/27/2026 12/27/2016 HPV Vaccines Aged Out No longer eligi ble based on patient's age to complete this topic Pneumococcal vaccine <65 Aged Out No longer eligible based on patient's age to complete this topic Procedures Procedure Name Priority Date/Time Associated Diagnosis Comments DIAGNOSTIC MAMMOGRAM BILATERAL W ROSI Routine 06/09/2015 12:29 PM CDT from Last 3 Months or Most Recently Relevant to Health Maintenance Results * DIAGNOSTIC MAMMOGRAM BILATERAL W ROSI (06/09/2015 12:29 PM CDT) Anatomical Region Laterality Modality Breast Bilateral Mammography 06/09/2015 12:2 9 PM CDT Narrative 06/23/2015 1:21 PM CDT SORIN OLIVER M.D. SARAY HAYDEN, FINAL REPORT The radiology attending physician has personally reviewed this study, and has reviewed and/or edited this written report and agrees with it. ACC# Date Time Exam [id number] Jun 09, 2015 11:53:00 [facility] [id number] Breast US unilateral, ltd L [id number] Jun 09, 2015 12:29:00 [facility] [address] Dig Breast Rosi Uziel Technologist(s): Sorin Oliveira; ; [id number] Jun 09, 2015 12:29:00 [facility] [address] Diag Mammogram Bilateral Technologist(s): Sorin Oliveira; ; EXAMINATION: BILATERAL FULL FIELD DIGITAL DIAGNOSTIC MAMMOGRAM WITH CAD, BILATERAL DIGITAL BREAST TOMOSYNTHESIS AND LEFT BREAST SONOGRAM HISTORY: 34-year-old woman with area of palpable concern the left breast since December. MAMMOGRAM TECHNIQUE: Full field digital craniocaudal and mediolateral oblique views were obtained. Bilateral digital breast tomosynthesis. Computer Aided Detection was performed with [employer].3 version 9.3. COMPARISON: No prior. Baseline mammogram. BREAST PARENCHYMAL COMPOSITION: The breasts are heterogeneously dense, which may obscure small masses. MAMMOGRAM FINDINGS: There is no evidence of suspicious mass, suspicious microcalcifications or architectural distortion within either breast on mammogram. SONOGRAM FINDINGS: Directed sonogram of the area of palpable concern within the left breast was performed. No focal abnormal solid or cystic lesion is identified in the reported area of palpable concern. Targeted physical exam demonstrates no suspicious palpable abnormality at this time. IMPRESSION: 1) No suspicious mammographic or sonographic findings are identified in the reported area of palpable concern. Any further evaluation at this time should be based on clinical assessment. Continued follow-up breast physical examination is recommended. 2) Annual screening mammography is recommended starting at age 40. OVERALL FINAL ASSESSMENT: BI-RADS Category 1: Negative. Any decision to biopsy should be based on clinical assessment. Requested By: Dictated By: SARAY HAYDEN on Jun 09 2015 12:59P This document has been electronically signed by: SORIN OLIVER M.D. on Jun 09 2015 1:07P Addendum Dictated by: SARAY HAYDEN on Jun 23 2015 11:05A This Addendum has been electronically signed by: SORIN OLIVER M.D. on Jun 23 2015 1:21P [id number] Procedure Note Provider, MD Chelsie - 06/21/2016 SORIN OLIVER M.D. SARAY HAYDEN, FINAL REPORT The radiology attending physician has personally reviewed this study, and has reviewed and/or edited this written report and agrees with it. ACC# Date Time Exam [id number] Jun 09, 2015 11:53:00 [facility] [address] Breast US unilateral, ltd L [id number] Jun 09, 2015 12:29:00 [facility] [address] Dig Breast Rosi Uziel Technologist(s): Sorin Oliveira; ; [id number] Jun 09, 2015 12:29:00 [facility] [address] Diag Mammogram Bilateral Technologist(s): Sorin Oliveira; ; EXAMINATION: BILATERAL FULL FIELD DIGITAL DIAGNOSTIC MAMMOGRAM WITH CAD, BILATERAL DIGITAL BREAST TOMOSYNTHESIS AND LEFT BREAST SONOGRAM HISTORY: 34-year-old woman with area of palpable concern the left breast since December. MAMMOGRAM TECHNIQUE: Full field digital craniocaudal and mediolateral oblique views were obtained. Bilateral digital breast tomosynthesis. Computer Aided Detection was performed with [employer] version 9.3. COMPARISON: No prior. Baseline mammogram. BREAST PARENCHYMAL COMPOSITION: The breasts are heterogeneously dense, which may obscure small masses. MAMMOGRAM FINDINGS: There is no evidence of suspicious mass, suspicious microcalcifications or architectural distortion within either breast on mammogram. SONOGRAM FINDINGS: Directed sonogram of the area of palpable concern within the left breast was performed. No focal abnormal solid or cystic lesion is identified in the reported area of palpable concern. Targeted physical exam demonstrates no suspicious palpable abnormality at this time. IMPRESSION: 1) No suspicious mammographic or sonographic findings are identified in the reported area of palpable concern. Any further evaluation at this time should be based on clinical assessment. Continued follow-up breast physical examination is recommended. 2) Annual screening mammography is recommended starting at age 40. OVERALL FINAL ASSESSMENT: BI-RADS Category 1: Negative. Any decision to biopsy should be based on clinical assessment. Requested By: Dictated By: SARAY HAYDEN on Jun 09 2015 12:59P This document has been electronically signed by: SORIN OLIVER M.D. on Jun 09 2015 1:07P Addendum Dictated by: SARAY HAYDEN on Jun 23 2015 11:05A This Addendum has been electronically signed by: SORIN OLIVER M.D. on Jun 23 2015 1:21P [id number] us Historical Provider MD NINA MAMMO PROCEDURES Erika l Result from Last 3 Months or Most Recently Relevant to Health Maintenance Insurance [employer] [place] Care Teams Agricultural Service Worker Relationship Specialty Start Date End Date Nitin Navarrete MD [address] [id number] PCP - General 10/27/16
--- OUTSIDE RECORDS SUMMARY | 2024-05-21 15:27 | XMS_ITS | Referral Summary ---
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 Gender Identity Not on file Sexual Orientation Not on file Last Filed Vital Signs Vital Sign Reading Time Taken Comments Blood Pressure 110/70 03/04/2023 11:14 AM BAND MACHINE OPERATOR Pulse 98 03/04/2023 11:14 AM BAND MACHINE OPERATOR Temperature 37.4 C (99.3 F) 03/04/2023 11:14 AM BAND MACHINE OPERATOR Respiratory Rate 22 03/04/2023 11:14 AM BAND MACHINE OPERATOR Oxygen Saturation 99% 03/04/2023 11:14 AM BAND MACHINE OPERATOR Inhaled Oxygen Concentration - - Weight 73 kg (160 lb 14.4 oz) 03/04/2023 11:14 A M BAND MACHINE OPERATOR Height 154.9 cm (5' 1 ) 03/04/2023 11:14 AM BAND MACHINE OPERATOR Body Mass Index 30.4 03/04/2023 11:14 AM BAND MACHINE OPERATOR Plan of Treatment Not on file Procedures Procedure Name Priority Date/Time Associated Diagnosis Comments DIAGNOSTIC MAMMOGRAM BILATERAL W DERRICK Routine 06/09/2015 12:29 PM CDT from Last 3 Months or Most Recently Relevant to Health Maintenance Results * DIAGNOSTIC MAMMOGRAM BILATERAL W DERRICK (06/09/2015 12:29 PM CDT) Anatomical Region Laterality Modality Breast Bilateral Mammography 06/09/2015 12:2 9 PM CDT Narrative 06/23/2015 1:21 PM CDT SORIN OLIVER M.D. SARAY HAYDEN, FINAL REPORT The radiology attending physician has personally reviewed this study, and has reviewed and/or edited this written report and agrees with it. ACC# Date Time Exam [id number] Jun 09, 2015 11:53:00 [facility] [id number] Breast US unilateral, ltd L [id number] Jun 09, 2015 12:29:00 [facility] 94816 Dig Breast Derrick Uziel Technologist(s): Sorin Oliveira; ; [id number] Jun 09, 2015 12:29:00 [facility] 20364 Diag Mammogram Bilateral Technologist(s): Sorin Oliveira; ; EXAMINATION: BILATERAL FULL FIELD DIGITAL DIAGNOSTIC MAMMOGRAM WITH CAD, BILATERAL DIGITAL BREAST TOMOSYNTHESIS AND LEFT BREAST SONOGRAM HISTORY: 34-year-old woman with area of palpable concern the left breast since December. MAMMOGRAM TECHNIQUE: Full field digital craniocaudal and mediolateral oblique views were obtained. Bilateral digital breast tomosynthesis. Computer Aided Detection was performed with [employer]OURlovers.3 version 9.3. COMPARISON: No prior. Baseline mammogram. [...] clinical assessment. Requested By: Dictated By: SARAY HAYDEN, on Jun 09 2015 12:59P This document has been electronically signed by: SORIN OLIVER M.D. on Jun 09 2015 1:07P Addendum Dictated by: SARAY HAYDEN on Jun 23 2015 11:05A This Addendum has been electronically signed by: SORIN OLIVER M.D. on Jun 23 2015 1:21P [id number] Procedure Note Provider, MD Chelsie - 06/21/2016 SORIN OLIVER M.D. SARAY HAYDEN, FINAL REPORT The radiology attending physician has personally reviewed this study, and has reviewed and/or edited this written report and agrees with it. ACC# Date Time Exam [id number] Jun 09, 2015 11:53:00 [facility] 63599 Breast US unilateral, ltd L [id number] Jun 09, 2015 12:29:00 [facility] 83234 Dig Breast Derrick Uziel Technologist(s): Sorin Oliveira; ; [id number] Jun 09, 2015 12:29:00 [facility] 68911 Diag Mammogram Bilateral Technologist(s): Sorin Oliveira; ; EXAMINATION: BILATERAL FULL FIELD DIGITAL DIAGNOSTIC MAMMOGRAM WITH CAD, BILATERAL DIGITAL BREAST TOMOSYNTHESIS AND LEFT BREAST SONOGRAM HISTORY: 34-year-old woman with area of palpable concern the left breast since December. MAMMOGRAM TECHNIQUE: Full field digital craniocaudal and mediolateral oblique views were obtained. Bilateral digital breast tomosynthesis. Computer Aided Detection was performed with [employer]OURlovers.3 version 9.3. COMPARISON: No prior. Baseline mammogram. [...] OLIVER M.D. on Jun 23 2015 1:21P [id number] Historical Provider MD NINA MAMMO PROCEDURES Erika l Result from Last 3 Months or Most Recently Relevant to Health Maintenance Insurance [place] Care Teams Bushing And Broach Operator Relationship Specialty Start Date End Date Nitin Navarrete MD [id number] [address] [facility] - General 10/27/16
--- OUTSIDE RECORDS SUMMARY | 2024-05-21 15:27 | XMS_ITS | Data Portability ---
Author Organization [place] [facility], Main Office Address [address] [place] [address] Assessment No assessment recorded. Plan of Treatment Reminders Order Date Submit Date Provider Last Modified By Organization Details Last Modified Time Details Appointments None recorded. Lab None recorded. Referral None recorded. Procedures None recorded. Surgeries None recorded. Imaging None recorded. Medication Orders cyanocobala min (vit B-12) 1,000 mcg/mL injection solution 2022 023 [facility] #[id number], [address] [place], [place], [id number], 3 12:34:49 spironolact one 50 mg tablet 2022 023 [facility] #[id number], [address], [place], [id number], 3 12:34:47 phentermine 15 mg capsule 2022 023 [facility] #[id number], [address], [place], [id number], 3 12:34:49 Patient TargetsNo targets recorded. Patient InstructionsNo instructions recorded. Reason for Referral None Reported. Results Created Date Observation Date Name Description Value Unit Range Abnormal Flag Note LastModifiedBy Organization Detail LastModifiedTime 12/24/19 21 12/27/2020 TSH+F REE T4 TSH 3.20 mIU/L normal Refer ence Range > or = 20 Years 0.40- 4.50 Pregn heather Range s First trime ster 0.26- 2.66 Secon d trime ster 0.55- 2.73 Third trime ster 0.43- 2.91 Not Available [address], [address], 12/27/2020 16:55:25 12/24/19 21 12/27/2020 TSH+F REE T4 T4, free 1.1 NG/dL 0.8-1. 8 normal Not Available [address], [address], 12/27/2020 16:55:25 12/24/19 21 12/27/2020 VITAM IN B12/F OLATE , SERUM PANEL vitamin B12 566 pg/mL 200-11 00 normal Not Available [address], [address], 12/27/2020 16:55:24 12/24/19 21 12/27/2020 VITAM IN B12/F OLATE , SERUM PANEL folate, serum 12.1 NG/mL normal Refer ence Range Low: <3.4 Borde rline : 3.4-5 .4 Marita l: >5.4 Not Available [address], [address], 12/27/2020 16:55:24 12/24/19 21 12/27/2020 ESTRA DIOL estradiol 72 pg/mL normal Refer ence Range Folli cular Phase : 19-14 4 Mid-C ycle: 64-35 7 Lutea l Phase : 56-21 4 Postm enopa usal: < or = 31 Refer ence range estab lishe d on post- puber clint patie nt popul ation . No pre-p ubert al refer ence range estab lishe d using this assay . For any patie nts for whom low Estra diol level s are antic ipate d (e.g. males , pre-p ubert al child moses and hypog onada l/pos t-men opaus al femal es), the [facility] Estra diol, Ultra sensi tive, LCMSM S assay is recom joanne d (orde r code 40537 ). Plecesia e note: patie nts being treat ed with the drug fulve stran t (Fasl odex( R)) have demon strat ed signi fican t inter feren ce in immun oassa y metho ds for estra diol measu remen t. The cross react ivity could lead to false ly eleva elias estra diol test resul ts leadi ng to an inapp ropri ate clini latisha asses sment of estro gen statu s. [facility] order code 05142 -Estr adiol , Ultra sensi tive LC/MS /MS demon strat es negli gible cross react ivity with fulve stran t. Not Available [address] [address] [place], [address], 12/27/2020 16:55:24 12/24/19 21 12/27/2020 PROLA CTIN prolactin 12.3 NG/mL normal Refer ence Range Femal es Non-p regna nt 3.0-3 0.0 Pregn ant 10.0- 209.0 Postm enopa usal 2.0-2 0.0 Not Available [address] [address] [place], [address], 12/27/2020 16:55:23 12/24/19 21 12/27/2020 PROGE STERO NE progesterone 1.3 NG/mL normal Refer ence Range s Femal e Folli cular Phase < 1.0 Lutea l Phase 2.6-2 1.5 Post menop ausal < 0.5 Pregn heather 1st Trime ster 4.1-3 4.0 2nd Trime ster 24.0- 76.0 3rd Trime ster 52.0- 302.0 Not Available [address] [address] [place], [address], 12/27/2020 16:55:22 12/24/19 21 12/27/2020 LH LH 1.2 mIU/m L normal Refer ence Range Folli cular Phase 1.9-1 2.5 Mid-C ycle Peak 8.7-7 6.3 Lutea l Phase 0.5-1 6.9 Postm enopa usal 10.0- 54.7 Not Available [facility] [facility] [address] [place], [address], 12/27/2020 16:55:21 12/24/19 21 12/27/2020 INSUL IN insulin 4.5 uIU/m L normal Refer ence Range < or = 19.6 Risk: Optim al < or = 19.6 Moder ate NA High >19.6 Adult cardi ovasc ular event risk categ ory cut point s (opti mal, moder ate, high) are based on [facility] popul ation data from 02/16 11. This insul in assay shows stron g cross -reac tivit y for some insul in analo gs (lisp ro, aspar t, and glarg ine) and much lower cross -reac tivit y with other s (dete carmita, gluli sine) . Not Available [address] [facility] [address] [place], [address], 12/27/2020 16:55:20 12/24/19 21 12/27/2020 FSH FSH 3.4 mIU/m L normal Refer ence Range Folli cular Phase 2.5-1 0.2 Mid-c ycle Peak 3.1-1 7.7 Lutea l Phase 1.5- 9.1 Postm enopa usal 23.0- 116.3 Not Available [address] [facility] [address] [place], [address], 12/27/2020 16:55:19 12/24/19 21 12/27/2020 DHEA SULFA TE DHEA sulfate 164 mcg/d L 23-266 normal Not Available [address] [facility] [address] [place], [address], 12/27/2020 16:55:18 12/24/19 21 12/27/2020 THYRO ID PEROX IDASE ANTIB ODIES thyroid peroxidase antibodies 1 IU/mL <9 normal Not Available [address] [address] [place], [address], 12/27/2020 16:55:17 12/24/19 21 12/27/2020 MAKAYLA SCREE N, IFA, W/REF L TITER AND PATTE RN MAKAYLA screen, ifa negati ve negati ve normal MAKAYLA IFA is a first line scree n for detec ting the prese nce of up to appro ximat ricky 150 autoa ntibo dies in vario us autoi mmune disea ses. A negat jeanine MAKAYLA IFA resul t sugge sts an MAKAYLA-a ssoci ated autoi mmune disea se is not prese nt at this time, but is not defin itive . If there is high clini latisha suspi cion for Sjogr en's syndr ome, testi ng for anti- SS-A/ Ro antib tabitha shoul d be consi dered . Anti- Litzy-1 antib tabitha shoul d be consi dered for clini vincenzo suspe cted infla mmato ry myopa lazaro . AC-0: Negat jeanine Inter natio nal Conse nsus on MAKAYLA Patte rns (http s://d oi.or g/10. 1515/ [facility]- 2017- 0052) For addit ional infor tammy brasher e refer to http: //gabriella bragg.Que stDia gnost ics.c om/fa q/FAQ 177 (This link is being provi ded for infor lona palm/ educa radha l purpo ses only. ) Not Available [facility] [address] [address], [place], [address], 12/27/2020 16:55:16 12/24/19 21 12/27/2020 CBC (H/H, RBC, INDIC ES, WBC, PLT) white blood cell count 6.2 thous and/u L 3.8-10 .8 normal Not Available [facility] [address] [place], [address], 12/27/2020 16:55:15 12/24/19 21 12/27/2020 CBC (H/H, RBC, INDIC ES, WBC, PLT) red blood cell count 4.49 shade on/uL 3.80-5 .10 normal Not Available [address], [address], 12/27/2020 16:55:15 12/24/19 21 12/27/2020 CBC (H/H, RBC, INDIC ES, WBC, PLT) hemoglobin 14.3 g/dL 11.7-1 5.5 normal Not Available [address], [address], 12/27/2020 16:55:15 12/24/19 21 12/27/2020 CBC (H/H, RBC, INDIC ES, WBC, PLT) hematocrit 42.5 % 35.0-4 5.0 normal Not Available [address], [address], 12/27/2020 16:55:15 12/24/19 21 12/27/2020 CBC (H/H, RBC, INDIC ES, WBC, PLT) MCV 94.7 fL 80.0-1 00.0 normal Not Available [address], [address], 12/27/2020 16:55:15 12/24/19 21 12/27/2020 CBC (H/H, RBC, INDIC ES, WBC, PLT) MCH 31.8 pg 27.0-3 3.0 normal Not Available [address], [address], 12/27/2020 16:55:15 12/24/19 21 12/27/2020 CBC (H/H, RBC, INDIC ES, WBC, PLT) MCHC 33.6 g/dL 32.0-3 6.0 normal Not Available [address], [address], 12/27/2020 16:55:15 12/24/19 21 12/27/2020 CBC (H/H, RBC, INDIC ES, WBC, PLT) RDW 12.3 % 11.0-1 5.0 normal Not Available [address], [address], 12/27/2020 16:55:15 12/24/19 21 12/27/2020 CBC (H/H, RBC, INDIC ES, WBC, PLT) platelet count 323 thous and/u L 140-40 0 normal Not Available [address], [address], 12/27/2020 16:55:15 12/24/19 21 12/27/2020 CBC (H/H, RBC, INDIC ES, WBC, PLT) MPV 10.2 fL 7.5-12 .5 normal Not Available [address], [address], 12/27/2020 16:55:15 12/24/19 21 12/27/2020 COMPR EHENS JEANINE METAB OLIC PANEL glucose 87 mg/dL 65-99 normal Fasti ng refer ence inter lorena Not Available [address], [address], 12/27/2020 16:55:15 12/24/19 21 12/27/2020 COMPR EHENS JEANINE METAB OLIC PANEL urea nitrogen (BUN) 13 mg/dL 7-25 normal Not Available [address], [address], 12/27/2020 16:55:15 12/24/19 21 12/27/2020 COMPR EHENS JEANINE METAB OLIC PANEL creatinine 0.79 mg/dL 0.50-1 .10 normal Not Available [address], [address], 12/27/2020 16:55:15 12/24/19 21 12/27/2020 COMPR EHENS JEANINE METAB OLIC PANEL eGFR non-afr. palestinian 94 mL/mi n/1.7 3m2 > or = 60 normal Not Available [address], [address], 12/27/2020 16:55:15 12/24/19 21 12/27/2020 COMPR EHENS JEANINE METAB OLIC PANEL eGFR 109 mL/mi n/1.7 3m2 > or = 60 normal Not Available [address], [address], 12/27/2020 16:55:15 12/24/19 21 12/27/2020 COMPR EHENS JEANINE METAB OLIC PANEL BUN/creatini ne ratio not applic able (calc ) 6-22 Not Available [address], [address], 12/27/2020 16:55:15 12/24/19 21 12/27/2020 COMPR EHENS JEANINE METAB OLIC PANEL sodium 137 mmol/ L 135-14 6 normal Not Available [address], [address], 12/27/2020 16:55:15 12/24/19 21 12/27/2020 COMPR EHENS JEANINE METAB OLIC PANEL potassium 3.8 mmol/ L 3.5-5. 3 normal Not Available [address], [address], 12/27/2020 16:55:15 12/24/19 21 12/27/2020 COMPR EHENS JEANINE METAB OLIC PANEL chloride 103 mmol/ L 98-110 normal Not Available [address], [address], 12/27/2020 16:55:15 12/24/19 21 12/27/2020 COMPR EHENS JEANINE METAB OLIC PANEL carbon dioxide 27 mmol/ L 20-32 normal Not Available [address] [place], [address], 12/27/2020 16:55:15 12/24/19 21 12/27/2020 COMPR EHENS JEANINE METAB OLIC PANEL calcium 9.4 mg/dL 8.6-10 .2 normal Not Available [address] [address] [place], [address], 12/27/2020 16:55:15 12/24/19 21 12/27/2020 COMPR EHENS JEANINE METAB OLIC PANEL protein, total 7.0 g/dL 6.1-8. 1 normal Not Available [address], [address], 12/27/2020 16:55:15 12/24/19 21 12/27/2020 COMPR EHENS JEANINE METAB OLIC PANEL albumin 4.5 g/dL 3.6-5. 1 normal Not Available [address], [address], 12/27/2020 16:55:15 12/24/19 21 12/27/2020 COMPR EHENS JEANINE METAB OLIC PANEL globulin 2.5 g/dL_ (calc ) 1.9-3. 7 normal Not Available [address], [address], 12/27/2020 16:55:15 12/24/19 21 12/27/2020 COMPR EHENS JEANINE METAB OLIC PANEL albumin/glob ulin ratio 1.8 (calc ) 1.0-2. 5 normal Not Available [address], [address], 12/27/2020 16:55:15 12/24/19 21 12/27/2020 COMPR EHENS JEANINE METAB OLIC PANEL bilirubin, total 1.0 mg/dL 0.2-1. 2 normal Not Available [address], [address], 12/27/2020 16:55:15 12/24/19 21 12/27/2020 COMPR EHENS JEANINE METAB OLIC PANEL alkaline phosphatase 49 U/L 31-125 normal Not Available [address], [address], 12/27/2020 16:55:15 12/24/19 21 12/27/2020 COMPR EHENS JEANINE METAB OLIC PANEL AST 25 U/L 10-30 normal Not Available [address], [address], 12/27/2020 16:55:15 12/24/19 21 12/27/2020 COMPR EHENS JEANINE METAB OLIC PANEL ALT 31 U/L 6-29 high Not Available [address], [address], 12/27/2020 16:55:15 12/24/19 21 12/27/2020 TESTO STERO NE, FREE, BIOAV AILAB LE AND TOTAL , MS albumin 4.7 g/dL 3.6-5. 1 Not Available [address], [address], 12/27/2020 16:55:14 12/24/19 21 12/27/2020 TESTO STERO NE, FREE, BIOAV AILAB LE AND TOTAL , MS sex hormone binding globulin 45.0 nmol/ L 17-124 Not Available [address], [address], 12/27/2020 16:55:14 12/24/19 21 12/27/2020 TESTO STERO NE, FREE, BIOAV AILAB LE AND TOTAL , MS testosterone , free 2.4 pg/mL 0.2-5. 0 Not Available [address], [address], 12/27/2020 16:55:14 12/24/19 21 12/27/2020 TESTO STERO NE, FREE, BIOAV AILAB LE AND TOTAL , MS testosterone ,bioavailabl e 5.1 NG/dL 0.5-8. 5 Not Available [facility] [address] [place], [address], 12/27/2020 16:55:14 12/24/19 21 12/27/2020 TESTO STERO NE, FREE, BIOAV AILAB LE AND TOTAL , MS testosterone , total, MS 27 NG/dL 2-45 For addit ional infor tammy brasher refer to https ://ed ucati on.qu estdi [employer]. com/f aq/FA Q165 (This link is being provi ded for infor lona nal/e ducat ional purpo ses only. ) (Note ) This test was devel oped and its cas tical perfo rmanc e nicholas cteri stics have been deter mined by [employer]. It has not been clear ed or appro yodit by the FDA. This assay has been valid ated pursu ant to the CLIA regul ation s and is used for clini latisha purpo ses. MDF med fusio n [address] [facility] [address] [facility] [address] [phone] Librado haile MD Not Available [facility] [address] [address] , [place], [address], 12/27/2020 16:55:14 02/11/20 21 02/13/2021 IGP, APTIM A HPV HPV aptima positi ve negati ve abnormal This nucle ic acid ampli ficat ion test detec ts fourt een high- risk HPV types (16,1 8,31, 33,35 ,39,4 5,51, 52,56 ,58,5 9,66, 68) witho ut diffe renti ation . Not Available [facility] [address] [facility], [place], [place], [address], 02/18/2021 11:10:26 02/11/20 21 02/18/2021 IGP, APTIM A HPV diagnosis: commen t abnormal EPITH ELIAL CELL ABNOR MALIT Y. LOW GRADE SQUAM OUS INTRA EPITH ELIAL LESIO N (LSIL ). Not Available [facility] [address] [place], [address], 02/18/2021 11:10:26 02/11/20 21 02/18/2021 IGP, APTIM A HPV recommendati on: commen t abnormal Sugge st follo w up as clini vincenzo appro priat e. Not Available [facility] [address] [place], [address], 02/18/2021 11:10:26 02/11/20 21 02/18/2021 IGP, APTIM A HPV specimen adequacy: commen t Satis facto ry for evalu ation . Endoc ervic al and/o r squam ous metap lasti c cells (endo cervi latisha compo nent) are prese nt. Not Available [address] [place], [address], 02/18/2021 11:10:26 02/11/20 21 02/18/2021 IGP, APTIM A HPV clinician provided ICD10: lucia farrell Z01.4 19 Not Available [address] [place], [address], 02/18/2021 11:10:26 02/11/20 21 02/18/2021 IGP, APTIM A HPV performed by: lucia onofre, Cytot echno logis t (ASCP ) Not Available [address] [place], [address], 02/18/2021 11:10:26 02/11/20 21 02/18/2021 IGP, APTIM A HPV electronical ly signed by: lucia Lennon MD, Patho logis t Not Available [address] [place], [address], 02/18/2021 11:10:26 02/11/20 21 02/18/2021 IGP, APTIM A HPV . . Not Available [facility] [address] [facility] [place], [address], 02/18/2021 11:10:26 02/11/20 21 02/18/2021 IGP, APTIM A HPV pathologist provided ICD10: lucia farrell R87.6 12 Not Available [facility] [address] [facility] [place], [address], 02/18/2021 11:10:26 02/11/20 21 02/18/2021 IGP, APTIM A HPV note: lucia t The Pap smear is a scree traci test desig kip to aid in the detec tion of violette ligna nt and malig nant condi tions of the uteri ne cervi x. It is not a diagn ostic proce dure and shoul d not be used as the sole means of detec ting cervi latisha cance r. Both false -posi tive and false -nega tive repor ts do occur . Not Available [facility] [address] [facility], [address], 02/18/2021 11:10:26 02/11/20 21 02/18/2021 IGP, APTIM A HPV test methodology: lucia farrell This liqui d based ThinP rep(R ) pap test was scree kip with the use of an image guide d syste m. Not Available [facility] [address] [facility], [address], 02/18/2021 11:10:26 03/06/19 22 03/09/2021 TSH+F REE T4 TSH 2.43 mIU/L normal Refer ence Range > or = 20 Years 0.40- 4.50 Pregn heather Range s First trime ster 0.26- 2.66 Secon d trime ster 0.55- 2.73 Third trime ster 0.43- 2.91 Not Available [address] [facility] [address] [place], [address], 03/09/2021 17:28:58 03/06/19 22 03/09/2021 TSH+F REE T4 T4, free 1.1 NG/dL 0.8-1. 8 normal Not Available [address], [address], 03/09/2021 17:28:58 03/06/19 22 03/09/2021 T3, FREE T3, free 3.5 pg/mL 2.3-4. 2 normal Not Available [address], [address], 03/09/2021 17:28:57 03/06/19 22 03/09/2021 THYRO ID PEROX IDASE ANTIB ODIES thyroid peroxidase antibodies 1 IU/mL <9 normal Not Available [address], [address], 03/09/2021 17:28:57 03/06/19 22 03/09/2021 COMPR EHENS JEANINE METAB OLIC PANEL glucose 80 mg/dL 65-99 normal Fasti ng refer ence inter lorena Not Available [address], [address], 03/09/2021 17:28:56 03/06/19 22 03/09/2021 COMPR EHENS JEANINE METAB OLIC PANEL urea nitrogen (BUN) 15 mg/dL 7-25 normal Not Available [address], [address], 03/09/2021 17:28:56 03/06/19 22 03/09/2021 COMPR EHENS JEANINE METAB OLIC PANEL creatinine 0.78 mg/dL 0.50-1 .10 normal Not Available [address], [address], 03/09/2021 17:28:56 03/06/19 22 03/09/2021 COMPR EHENS JEANINE METAB OLIC PANEL eGFR non-afr. palestinian 95 mL/mi n/1.7 3m2 > or = 60 normal Not Available [address] [address] [place], [address], 03/09/2021 17:28:56 03/06/19 22 03/09/2021 COMPR EHENS JEANINE METAB OLIC PANEL eGFR 110 mL/mi n/1.7 3m2 > or = 60 normal Not Available [address], [address], 03/09/2021 17:28:56 03/06/19 22 03/09/2021 COMPR EHENS JEANINE METAB OLIC PANEL BUN/creatini ne ratio not applic able (calc ) 6-22 Not Available [address], [address], 03/09/2021 17:28:56 03/06/19 22 03/09/2021 COMPR EHENS JEANINE METAB OLIC PANEL sodium 138 mmol/ L 135-14 6 normal Not Available [address], [address], 03/09/2021 17:28:56 03/06/19 22 03/09/2021 COMPR EHENS JEANINE METAB OLIC PANEL potassium 4.1 mmol/ L 3.5-5. 3 normal Not Available [address], [address], 03/09/2021 17:28:56 03/06/19 22 03/09/2021 COMPR EHENS JEANINE METAB OLIC PANEL chloride 104 mmol/ L 98-110 normal Not Available [address], [address], 03/09/2021 17:28:56 03/06/19 22 03/09/2021 COMPR EHENS JEANINE METAB OLIC PANEL carbon dioxide 27 mmol/ L 20-32 normal Not Available [address] [address] [place], [address], 03/09/2021 17:28:56 03/06/19 22 03/09/2021 COMPR EHENS JEANINE METAB OLIC PANEL calcium 9.2 mg/dL 8.6-10 .2 normal Not Available [address], [address], 03/09/2021 17:28:56 03/06/19 22 03/09/2021 COMPR EHENS JEANINE METAB OLIC PANEL protein, total 6.6 g/dL 6.1-8. 1 normal Not Available [address], [address], 03/09/2021 17:28:56 03/06/19 22 03/09/2021 COMPR EHENS JEANINE METAB OLIC PANEL albumin 4.2 g/dL 3.6-5. 1 normal Not Available [address], [address], 03/09/2021 17:28:56 03/06/19 22 03/09/2021 COMPR EHENS JEANINE METAB OLIC PANEL globulin 2.4 g/dL_ (calc ) 1.9-3. 7 normal Not Available [address], [address], 03/09/2021 17:28:56 03/06/19 22 03/09/2021 COMPR EHENS JEANINE METAB OLIC PANEL albumin/glob ulin ratio 1.8 (calc ) 1.0-2. 5 normal Not Available [address], [address], 03/09/2021 17:28:56 03/06/19 22 03/09/2021 COMPR EHENS JEANINE METAB OLIC PANEL bilirubin, total 0.5 mg/dL 0.2-1. 2 normal Not Available [address], [address], 03/09/2021 17:28:56 03/06/19 22 03/09/2021 COMPR EHENS JEANINE METAB OLIC PANEL alkaline phosphatase 48 U/L 31-125 normal Not Available [facility] [address], [address], 03/09/2021 17:28:56 03/06/19 22 03/09/2021 COMPR EHENS JEANINE METAB OLIC PANEL AST 22 U/L 10-30 normal Not Available [address], [address], 03/09/2021 17:28:56 03/06/19 22 03/09/2021 COMPR EHENS JEANINE METAB OLIC PANEL ALT 30 U/L 6-29 high Not Available [address], [address], 03/09/2021 17:28:56 01/29/20 22 02/01/2022 TSH+F REE T4 TSH 4.94 mIU/L high Refer ence Range > or = 20 Years 0.40- 4.50 Pregn heather Range s First trime ster 0.26- 2.66 Secon d trime ster 0.55- 2.73 Third trime ster 0.43- 2.91 Not Available [address], [address], 02/01/2022 19:44:24 01/29/20 22 02/01/2022 TSH+F REE T4 T4, free 1.2 NG/dL 0.8-1. 8 normal Not Available [address], [address], 02/01/2022 19:44:24 01/29/20 22 02/01/2022 T3, FREE T3, free 4.0 pg/mL 2.3-4. 2 normal Not Available [address], [address], 02/01/2022 19:44:24 01/29/20 22 02/01/2022 VITAM IN B12/F OLATE , SERUM PANEL vitamin B12 280 pg/mL 200-11 00 normal Pleas e Note: Altho ugh the refer ence range for vitam in B12 is 200-1 100 pg/mL , it has been repor elias that betwe en 5 and 10% of patie nts with value s betwe en 200 and 400 pg/mL may exper ience neuro psych iatri c and hemat ologi c abnor malit ies due to occul t B12 defic iency ; less than 1% of patie nts with value s above 400 pg/mL will have sympt oms. Not Available [facility] [address] [address] [place], [address], 02/01/2022 19:44:24 01/29/20 22 02/01/2022 VITAM IN B12/F OLATE , SERUM PANEL folate, serum 8.4 NG/mL normal Refer ence Range Low: <3.4 Borde rline : 3.4-5 .4 Marita l: >5.4 Not Available [address] [address] [place], [address], 02/01/2022 19:44:24 01/29/20 22 02/01/2022 THYRO ID PEROX IDASE ANTIB ODIES thyroid peroxidase antibodies <1 IU/mL <9 normal Not Available [address] [place], [address], 02/01/2022 19:44:23 01/29/20 22 02/01/2022 COMPR EHENS JEANINE METAB OLIC PANEL glucose 82 mg/dL 65-99 normal Fasti ng refer ence inter lorena Not Available [facility] [address] [address] [place], [address], 02/01/2022 19:44:23 01/29/20 22 02/01/2022 COMPR EHENS JEANINE METAB OLIC PANEL urea nitrogen (BUN) 17 mg/dL 7-25 normal Not Available [facility] [address] [place], [address], 02/01/2022 19:44:23 01/29/20 22 02/01/2022 COMPR EHENS JEANINE METAB OLIC PANEL creatinine 0.84 mg/dL 0.50-0 .99 normal Not Available [address], [address], 02/01/2022 19:44:23 01/29/20 22 02/01/2022 COMPR EHENS JEANINE METAB OLIC PANEL eGFR 89 mL/mi n/1.7 3m2 > or = 60 normal The eGFR is based on the CKD-E PI 2020 equat ion. To calcu late the new eGFR from a previ ous Creat inine or Cysta tin C resul t, go to https ://molly peña/demetrius thomas s/ kdoqi /gfr% 5Fcal culat or Not Available [address], [address], 02/01/2022 19:44:23 01/29/20 22 02/01/2022 COMPR EHENS JEANINE METAB OLIC PANEL BUN/creatini ne ratio not applic able (calc ) 6-22 Not Available [address], [address], 02/01/2022 19:44:23 01/29/20 22 02/01/2022 COMPR EHENS JEANINE METAB OLIC PANEL sodium 135 mmol/ L 135-14 6 normal Not Available [address], [address], 02/01/2022 19:44:23 01/29/20 22 02/01/2022 COMPR EHENS JEANINE METAB OLIC PANEL potassium 4.0 mmol/ L 3.5-5. 3 normal Not Available [address], [address], 02/01/2022 19:44:23 01/29/20 22 02/01/2022 COMPR EHENS JEANINE METAB OLIC PANEL chloride 102 mmol/ L 98-110 normal Not Available [address], [address], 02/01/2022 19:44:23 01/29/20 22 02/01/2022 COMPR EHENS JEANINE METAB OLIC PANEL carbon dioxide 25 mmol/ L 20-32 normal Not Available [address], [address], 02/01/2022 19:44:23 01/29/20 22 02/01/2022 COMPR EHENS JEANINE METAB OLIC PANEL calcium 9.3 mg/dL 8.6-10 .2 normal Not Available [address], [address], 02/01/2022 19:44:23 01/29/20 22 02/01/2022 COMPR EHENS JEANINE METAB OLIC PANEL protein, total 6.6 g/dL 6.1-8. 1 normal Not Available [address], [address], 02/01/2022 19:44:23 01/29/20 22 02/01/2022 COMPR EHENS JEANINE METAB OLIC PANEL albumin 4.1 g/dL 3.6-5. 1 normal Not Available [address], [address], 02/01/2022 19:44:23 01/29/20 22 02/01/2022 COMPR EHENS JEANINE METAB OLIC PANEL globulin 2.5 g/dL_ (calc ) 1.9-3. 7 normal Not Available [address], [address], 02/01/2022 19:44:23 01/29/20 22 02/01/2022 COMPR EHENS JEANINE METAB OLIC PANEL albumin/glob ulin ratio 1.6 (calc ) 1.0-2. 5 normal Not Available [address], [address], 02/01/2022 19:44:23 01/29/20 22 02/01/2022 COMPR EHENS JEANINE METAB OLIC PANEL bilirubin, total 0.8 mg/dL 0.2-1. 2 normal Not Available [address] [address] [place], [address], 02/01/2022 19:44:23 01/29/20 22 02/01/2022 COMPR EHENS JEANINE METAB OLIC PANEL alkaline phosphatase 45 U/L 31-125 normal Not Available [address] [address] [place], [address], 02/01/2022 19:44:23 01/29/20 22 02/01/2022 COMPR EHENS JEANINE METAB OLIC PANEL AST 19 U/L 10-30 normal Not Available [address] [address] [place], [address], 02/01/2022 19:44:23 01/29/20 22 02/01/2022 COMPR EHENS JEANINE METAB OLIC PANEL ALT 20 U/L 6-29 normal Not Available [address] [address] [place], [address], 02/01/2022 19:44:23 01/29/20 22 02/01/2022 TESTO STERO NE, FREE (DIAL YSIS) , TOTAL (MS) AND SEX HORMO NE DENISE NG GLOBU RIDDHI testosterone , total, MS 25 NG/dL 2-45 For addit ional infor tammy brasher e refer to http: //[facility] catandres n.que stdia gnost ics.c om/fa q/Tot alTes jeferson Sinha [facility] (This link is being provi ded for infor lona palm/ educelo quezada purpo ses only. ) This test was devel oped and its cas tical perfo rmanc e nicholas cteri stics have been deter mined by [facility]. It has not been clear ed or appro yodit by the FDA. This assay has been valid ated pursu ant to the CLIA regul ation s and is used for clini latisha purpo ses. Not Available [facility] [address], [address], 02/01/2022 19:44:22 01/29/20 22 02/01/2022 TESTO STERO NE, FREE (DIAL YSIS) , TOTAL (MS) AND SEX HORMO NE DENISE NG GLOBU RIDDHI testosterone , free 2.7 pg/mL 0.1-6. 4 This test was devel oped and its cas tical perfo rmanc e nicholas cteri stics have been deter mined by [facility]. It has not been clear ed or appro yodit by the FDA. This assay has been valid ated pursu ant to the CLIA regul ation s and is used for clini latisha purpo ses. Not Available [facility] [address], [address], 02/01/2022 19:44:22 01/29/20 22 02/01/2022 TESTO STERO NE, FREE (DIAL YSIS) , TOTAL (MS) AND SEX HORMO NE DENISE NG GLOBU RIDDHI sex hormone binding globulin 53 nmol/ L 17-124 Not Available [facility] [address], [address], 02/01/2022 19:44:22 07/22/19 23 07/27/2022 COMPR EHENS JEANINE METAB OLIC PANEL glucose 87 mg/dL 65-99 normal Fasti ng refer ence inter lorena Not Available [facility] [address], [address], 07/27/2022 15:11:33 07/22/19 23 07/27/2022 COMPR EHENS JEANINE METAB OLIC PANEL urea nitrogen (BUN) 20 mg/dL 7-25 normal Not Available [facility] [address], [address], 07/27/2022 15:11:33 07/22/19 23 07/27/2022 COMPR EHENS JEANINE METAB OLIC PANEL creatinine 0.87 mg/dL 0.50-0 .99 normal Not Available [address], [address], 07/27/2022 15:11:33 07/22/19 23 07/27/2022 COMPR EHENS JEANINE METAB OLIC PANEL eGFR 86 mL/mi n/1.7 3m2 > or = 60 normal The eGFR is based on the CKD-E PI 2020 equat ion. To calcu late the new eGFR from a previ ous Creat inine or Cysta tin C resul t, go to https ://molly w.zaid peralesy.o mariana/demetrius thomas s/ kdoqi /gfr% 5Fcal culat or Not Available [address] [place], [address], 07/27/2022 15:11:33 07/22/19 23 07/27/2022 COMPR EHENS JEANINE METAB OLIC PANEL BUN/creatini ne ratio NOT APPLIC ABLE (calc ) 6-22 Not Available [address] [address] [place], [address], 07/27/2022 15:11:33 07/22/19 23 07/27/2022 COMPR EHENS JEANINE METAB OLIC PANEL sodium 137 mmol/ L 135-14 6 normal Not Available [facility] [address], [address], 07/27/2022 15:11:33 07/22/19 23 07/27/2022 COMPR EHENS EJANINE METAB OLIC PANEL potassium 3.9 mmol/ L 3.5-5. 3 normal Not Available [facility] [address], [address], 07/27/2022 15:11:33 07/22/19 23 07/27/2022 COMPR EHENS JEANINE METAB OLIC PANEL chloride 101 mmol/ L 98-110 normal Not Available [facility] [address] [address] [place], [address], 07/27/2022 15:11:33 07/22/19 23 07/27/2022 COMPR EHENS JEANINE METAB OLIC PANEL carbon dioxide 28 mmol/ L 20-32 normal Not Available [address], [address], 07/27/2022 15:11:33 07/22/19 23 07/27/2022 COMPR EHENS JEANINE METAB OLIC PANEL calcium 9.8 mg/dL 8.6-10 .2 normal Not Available [address], [address], 07/27/2022 15:11:33 07/22/19 23 07/27/2022 COMPR EHENS JEANINE METAB OLIC PANEL protein, total 7.2 g/dL 6.1-8. 1 normal Not Available [address], [address], 07/27/2022 15:11:33 07/22/19 23 07/27/2022 COMPR EHENS JEANINE METAB OLIC PANEL albumin 4.6 g/dL 3.6-5. 1 normal Not Available [address], [address], 07/27/2022 15:11:33 07/22/19 23 07/27/2022 COMPR EHENS JEANINE METAB OLIC PANEL globulin 2.6 g/dL_ (calc ) 1.9-3. 7 normal Not Available [address], [address], 07/27/2022 15:11:33 07/22/19 23 07/27/2022 COMPR EHENS JEANINE METAB OLIC PANEL albumin/glob ulin ratio 1.8 (calc ) 1.0-2. 5 normal Not Available [address], [address], 07/27/2022 15:11:33 07/22/19 23 07/27/2022 COMPR EHENS JEANINE METAB OLIC PANEL bilirubin, total 0.9 mg/dL 0.2-1. 2 normal Not Available [address], [address], 07/27/2022 15:11:33 07/22/19 23 07/27/2022 COMPR EHENS JEANINE METAB OLIC PANEL alkaline phosphatase 48 U/L 31-125 normal Not Available [address], [address], 07/27/2022 15:11:33 07/22/19 23 07/27/2022 COMPR EHENS JEANINE METAB OLIC PANEL AST 14 U/L 10-30 normal Not Available [address], [address], 07/27/2022 15:11:33 07/22/19 23 07/27/2022 COMPR EHENS JEANINE METAB OLIC PANEL ALT 18 U/L 6-29 normal Not Available [address], [address], 07/27/2022 15:11:33 07/22/19 23 07/27/2022 THYRO ID PEROX IDASE ANTIB ODIES thyroid peroxidase antibodies <1 IU/mL <9 Not Available [address], [address], 07/27/2022 15:11:34 07/22/19 23 07/27/2022 VITAM IN B12/F OLATE , SERUM PANEL vitamin B12 871 pg/mL 200-11 00 normal Not Available [address], [address], 07/27/2022 15:11:34 07/22/19 23 07/27/2022 VITAM IN B12/F OLATE , SERUM PANEL folate, serum 6.6 NG/mL normal Refer ence Range Low: <3.4 Borde rline : 3.4-5 .4 Marita l: >5.4 Not Available [address], [address], 07/27/2022 15:11:34 07/22/19 23 07/27/2022 T3, FREE T3, free 3.4 pg/mL 2.3-4. 2 normal Not Available [address], [address], 07/27/2022 15:11:35 07/22/19 23 07/27/2022 TSH+F REE T4 TSH 2.08 mIU/L normal Refer ence Range > or = 20 Years 0.40- 4.50 Pregn heather Range s First trime ster 0.26- 2.66 Secon d trime ster 0.55- 2.73 Third trime ster 0.43- 2.91 Not Available [address], [address], 07/27/2022 15:11:36 07/22/19 23 07/27/2022 TSH+F REE T4 T4, free 1.3 NG/dL 0.8-1. 8 normal Not Available [address], [address], 07/27/2022 15:11:36 01/28/20 21 01/27/2021 US, thyro id No observ ation record ed. [id number] [facility] [address], [place], [address], 04/28/2022 07:39:35 01/28/20 21 01/27/2021 MAMMO , diagn ostic , digit al, bilat eral No observ ation record ed. [id number] [facility] [address], [place], [address], 04/28/2022 07:39:35 01/29/20 21 01/27/2021 MAMMO , diagn ostic , digit al, bilat eral No observ ation record ed. [id number] [facility] [address], [place], [address], 04/28/2022 07:39:35 02/10/20 21 01/27/2021 MAMMO , diagn ostic , digit al, bilat eral No observ ation record ed. [id number] [facility] [address], [place], [address], 04/28/2022 07:39:35 02/11/2001/27/2021 MAMMO , diagn ostic , digit al, bilat eral No observ ation record ed. [id number] [facility] [address], [place], [address], 04/28/2022 07:39:35 Result Notes None recorded. Problems Name Problem SNOMED Code Status Onset Date Resolution Date Notes Provider Name and Address Organization Details Recorded Time Bjorn thyroiditis 31892155 Active 2022 Shruthi Arreola MD [address], [place], [address], [employer] 3 12:32:55 Vitamin B12 deficiency (non anemic) 01064816 Active 2022 Shruthi Arreola MD [address], [place], [address], [facility] 3 12:33:02 Loss of hair 230985522 Active 2022 Shruthi Arreola MD [address], [place], [address], [facility] 3 12:33:17 Problem Notes None recorded. Procedures Surgical History Date Name Laterality Status Provider Name and Address Organization Details Recorded Time 02/12/20 Date of Last Pap Smear completed Not Available [facility] 04/28/2022 07:27:08 01/28/20 21 Most Recent Mammogram completed Not Available [facility] 04/28/2022 07:27:08 03/09/19 18 AUTOMATION APPLICATION ENGINEER Surgery completed Not Available [facility] 04/29/19 07:27:11 02/11/20 17 AUTOMATION APPLICATION ENGINEER Procedure completed Not Available [facility] 2022 07:27:11 07/06/19 14 Date of Last Colonoscopy completed Not Available [facility] 04/28/2022 07:27:08 07/06/19 14 Colonoscopy completed Not Available [facility] 04/29/19 07:27:11 02/17/20 12 AUTOMATION APPLICATION ENGINEER Procedure completed Not Available [facility] 2022 07:27:11 Shoulder completed Not Available [facility] 07:27:11 AUTOMATION APPLICATION ENGINEER Surgery completed Not Available [facility] 04/28/2022 07:27:11 AUTOMATION APPLICATION ENGINEER Surgery completed Not Available [facility] 04/28/2022 07:27:11 Imaging Results Imaging Date Name Status LastModified by Organiz ation Details LastModified Time 01/27/2021 US, thyroid completed [id number] [facility] [address], [place], [address], 04/28/2022 07:39:35 01/27/2021 MAMMO, diagnostic, digital, bilateral completed [id number] [facility] [address], [place], [address], 04/28/2022 07:39:35 01/27/2021 MAMMO, diagnostic, digital, bilateral completed [id number] [facility] [address], [place], [address], 04/28/2022 07:39:35 01/27/2021 MAMMO, diagnostic, digital, bilateral completed [id number] [facility] [address], [place], [address], 04/28/2022 07:39:35 01/27/2021 MAMMO, diagnostic, digital, bilateral completed [id number] [facility] [address], [place], [address], 04/28/2022 07:39:35 Procedure Notes None recorded. Medical Equipment None Reported. Allergies Allergen ID Allergen Name Allergen Category Reaction Reaction Severity Criticality Documentation Date Start Date Code Code System Note Provider Name and Address Organization Details Recorded Time 17464 Substance with sulfonami de structure and antibacte rial mechanism of action (substanc e) medicatio n Not available Not available Not available 04/28/2022 01524 8003 SNOMED as baby Not Available [facility] 3 07:39:17 63189 banana extract food,medi cation abdominal pain moderate high 10/07/2022 88775 9 RxNorm BRIGIDA Clemons [place] - [place] [email or web address] 3 12:18:09 Medications Name Sig Start Date Stop Date Status Note LastModified by Organization Details LastModified Time insulin syringe 31g x 5/16 1 ml mi insulin syringe 31g x 5/16 1 ml mi sc active Not Available Not Available Not Available Mirena 21 mcg/24 hr (up to 8 years) 52 mg intrauterin e device Take 1 device by intrauter ine route. active Not Available Not Available No t Available buspirone 5 mg tablet TAKE 1 TABLET BY MOUTH TWICE DAILY active Not Available Not Available No t Available prednisone 10 mg tablet 02/05 completed Not Available Not Available Not Available clindamycin HCl 300 mg capsule TAKE 1 CAPSULE BY MOUTH EVERY 8 HOURS 11/10 completed Not Available Not Available Not Available albuterol sulfate 2.5 mg/3 mL (0.083 %) solution for nebulizatio n active Not Available Not Available Not Available cetirizine 10 mg tablet TK 1 T PO QHS FOR ALLERGIC REACTIONS 01/17 completed Not Available Not Available Not Available azithromyci n 250 mg tablet TK 2 TS PO ON DAY 1, THEN TK 1 T PO D FOR 4 DAYS 02/11 completed Not Available Not Available Not Available fluconazole 150 mg tablet TAKE 1 TABLET BY MOUTH 1 TIME 02/11 completed Not Available Not Available Not Available benzonatate 200 mg capsule 04/21 completed Not Available Not Available Not Available valacyclovi r 1 gram tablet TK 1 T PO BID FOR 7 DAYS 01/17 completed Not Available Not Available Not Available clarithromy darlene 500 mg tablet TAKE 1 TABLET BY MOUTH EVERY 12 HOURS 11/10 completed Not Available Not Available Not Available hydrocodone 5 mg-acetamin ophen 325 mg tablet TK 1 TO 2 TS PO AT BEDTIME 04/21 completed Not Available Not Available Not Available meloxicam 15 mg tablet TK 1 T PO QD 01/17 completed Not Available Not Available Not Available metronidazo le 0.75 % (37.5 mg/5 gram) vaginal gel I 1 APL VAGINALLY QHS FOR 5 DAYS 04/21 completed Not Available Not Available Not Available Elidel 1 % topical cream 01/17 completed Not Available Not Available Not Available prednisone 20 mg tablet TAKE 2 TABLETS BY MOUTH EVERY MORNING 02/11 completed Not Available Not Available Not Available Doc-Q-Lace 100 mg capsule TK ONE C PO BID 04/21 completed Not Available Not Available Not Available terconazole 0.8 % vaginal cream INSTER ONE APL VAGINALLY HS FOR 3 NIGHTS 04/21 completed Not Available Not Available Not Available alclometaso ne 0.05 % topical cream active Not Available Not Available Not Available phentermine 15 mg capsule TAKE 1 CAPSULE BY MOUTH EVERY DAY IN THE MORNING 2022 active Not Available Not Available Not Avai lable acetaminoph en 300 mg-codeine 30 mg tablet 01/17 completed Not Available Not Available Not Available valacyclovi r 500 mg tablet TK 1 T PO QD 01/17 completed Not Available Not Available Not Available peg-electro lyte solution 420 gram oral solution 03/09 completed Not Available Not Available Not Available triamcinolo ne acetonide 0.1 % topical cream 11/10 completed Not Available Not Available Not Available methocarbam ol 750 mg tablet TAKE 1 TABLET BY MOUTH THREE TIMES DAILY FOR 5 DAYS NEEDED active Not Available Not Available No t Available cephalexin 500 mg capsule TAKE 1 CAPSULE BY MOUTH EVERY 12 HOURS 03/31 completed Not Available Not Available Not Available cyanocobala min (vit B-12) 1,000 mcg/mL injection solution ADMINISTE R 1 ML UNDER THE SKIN EVERY WEEK IN THE MORNING 2022 active Not Available Not Available Not Avai lable triamcinolo ne acetonide 0.1 % topical ointment APPLY TOPICALLY TO RASH ON SCALP TWICE DAILY NEEDED FOR RASH UNTIL CLEAR FOR UP TO 2 WEEKS AT A TIME 11/10 completed Not Available Not Available Not Available prednisone 50 mg tablet 01/17 completed Not Available Not Available Not Available insulin syringe U-100 with needle 1 mL 31 gauge x 07/13 USE TO INJECT B12 UNDER THE SKIN ONCE WEEKLY active Not Available Not Available No t Available methylpredn isolone 4 mg tablets in a dose pack 02/05 completed Not Available Not Available Not Available ondansetron 4 mg disintegrat ing tablet DISSOLVE 1 TABLET ON THE TONGUE EVERY 6 HOURS NEEDED FOR NAUSEA OR VOMITING active Not Available Not Available No t Available cefdinir 300 mg capsule TAKE 1 CAPSULE BY MOUTH EVERY 12 HOURS 02/11 completed Not Available Not Available Not Available naproxen 500 mg tablet TK 1 T PO Q 12 H WF PRN 04/21 completed Not Available Not Available Not Available spironolact one 50 mg tablet TAKE 2 TABLETS BY MOUTH EVERY DAY IN THE MORNING 2022 active Not Available Not Available Not Avai lable tobramycin 0.3 %-dexametha sone 0.1 % eye drops,suspe nsion 02/05 completed Not Available Not Available Not Available oxycodone 5 mg tablet TK 1-2 TS PO Q 6 H PRN P 04/21 completed Not Available Not Available Not Available bupropion HCl XL 300 mg 24 hr tablet, extended release TAKE 1 TABLET BY MOUTH EVERY MORNING active Not Available Not Available No t Available bupropion HCl XL 150 mg 24 hr tablet, extended release 03/31 completed Not Available Not Available Not Available nitrofurant oin monohydrate /macrocryst als 100 mg capsule TK 1 C PO BID FOR 7 DAYS 04/21 completed Not Available Not Available Not Available Vitamin C 2021 active Not Available Not Available Not Avai lable Vitamin B-12 2021 active Not Available Not Available Not Avai lable vitamin E 2021 active Not Available Not Available Not Avai lable Vitamin D3 2021 active Not Available Not Available Not Avai lable ProAir HFA 90 mcg/actuati on aerosol inhaler INL 2 PFS PO Q 4 TO 6 H PRF BRONCHOSP ASM 02/10 completed Not Available Not Available Not Available Wal-Zyr D 5 mg-120 mg tablet,exte nded release TAKE 1 TABLET BY MOUTH EVERY 12 HOURS NEEDED FOR ALLERGY SYMPTOMS active Not Available Not Available No t Available Fluzone Quad (PF) 60 mcg (15 mcg x 4)/0.5 mL IM syringe PHARMACIS T ADMINISTE RED IMMUNIZAT ION ADMINISTE RED AT TIME OF DISPENSIN G active Not Available Not Available No t Available Paxlovid 300 mg (150 mg x 2)-100 mg tablets in a dose pack FOLLOW PACKAGE DIRECTION S active Not Available Not Available No t Available Vitals Date Recorded Body mass index (BMI) Body height Oxygen saturation Oxygen saturation in Arterial blood by Pulse oximetry Heart rate Body temperature Body weight Systolic blood pressure Diastolic blood pressure Provider Name and Address Organization Details Last Updated DateTime 1 35 kg/m2 154.94 cm 97 % 97 % 81 /min 98.6 [degF] 68334.5 9 g 110 mm[Hg] 60 mm[Hg] Not Available [facility] 3 07:29:29 Date Recorded Body mass index (BMI) Body height Body temperature Body weight Systolic blood pressure Diastolic blood pressure Provider Name and Address Organization Details Last Updated DateTime 1 34.4 kg/m2 154.94 cm 97.8 [degF] 72827.8 1 g 121 mm[Hg] 64 mm[Hg] Not Available [facility] 3 07:29:29 Date Recorded Body mass index (BMI) Body height Oxygen saturation Oxygen saturation in Arterial blood by Pulse oximetry Heart rate Body temperature Body weight Systolic blood pressure Diastolic blood pressure Provider Name and Address Organization Details Last Updated DateTime 3 32.5 kg/m2 154.94 cm 97 % 97 % 93 /min 97.6 [degF] 35768.6 1 g 135 mm[Hg] 75 mm[Hg] Not Available [facility] 3 07:29:29 Date Recorded Body height Body mass index (BMI) Body weight Heart rate Body temperature Systolic blood pressure Diastolic blood pressure Provider Name and Address Organization Details Last Updated DateTime 3 154.94 cm 30.2 kg/m2 32771.7 8 g 82 /min 98.6 [degF] 126 mm[Hg] 85 mm[Hg] BRIGIDA Clemons - [place] [employer] [facility] 12:16:33 Social History Question Answer Notes LastModified by Organizat ion Details LastModified Time Tobacco Smoking Status Never Smoker vaping [facility]IAN [facility] [place] 10/07/2022 12:04:06 What Is Your Level Of Alcohol Consumption? Occasional [id number] Information not available 04/28/2022 What Is Your Level Of Caffeine Consumption? Occasional [id number] Information not available 04/28/2022 In The 14 Days Before Symptom Onset, Have You Had Close Contact With A Laboratory-confir med COVID-19 While That Case Was Ill? No Information not available 10/07/2022 In The 14 Days Before Symptom Onset, Have You Had Close Contact With A Person Who Is Under Investigation For COVID-19 While That Person Was Ill? No Information not available 10/07/2022 What Type Of Diet Are You Following? REGULAR [id number] Information not available 04/28/2022 Do You Or Have You Ever Used E-cigarettes Or Vape? 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 No Information not available 10/07/2022 What Is Your Relationship Status? [id number] Information not available 04/28/2022 Do You Use Your Seat Belt Or Car Seat Routinely? Yes Information not available 10/07/2022 Do You Use Any Illicit Or Recreational Drugs? No Information not available 10/07/2022 Have You Recently Traveled Abroad? No Information not available 10/07/2022 Do You Have Any Dietary Restrictions? No Information not available 10/07/2022 Do You Or Have You Ever Used Any Other Forms Of Tobacco Or Nicotine? Yes Information not available 10/07/2022 Sex: Female Functional Status Question Answer Note LastModified by Organizat [employer] Details LastModified Time What is your exercise level? Moderate [id number] Information not available 04/28/2022 Mental Status None recorded. Family History Relationship Description Onset Age of this Age Resolved Age Notes LastModified by Organization Details LastModified Time Father Hypertensive disorder [id number] Not available 04/28/2022 07:27:13 Medical History Condition Response FEMALE PROBLEMS / INFECTIONS Y HERPES N Gynecological History Statement/Question Response Abnormal Pap Y Date of Last Colonoscopy 07/05/2013 Date of LMP Date of Last Pap Smear 02/11/2021 Current Control Method IUD Age at Menarche 13 Most Recent Mammogram 01/27/2021 Obstetrics History GPAL:G 0 P 0 0 0 0 Past Encounters Encounter ID Performer Location Encounter Start Date Encounter Closed Date Diagnosis/Indication Diagnosis SNOMED-CT Code Diagnosis ICD10 Code Diagnosis Note [id number] _SANTO_Viki IGRATION_ DEFAULT_1 _1 , 11/10/2020 00:00:00 11/10/2020 13:03:27 [id number] [facility] [address] [place] [address] 12/16/2020 00:00:00 12/16/2020 16:59:27 [id number] _MARY IGRATION_ DEFAULT_1 _1 , 02/11/2021 00:00:00 02/11/2021 11:54:10 [id number] [facility] [address] [place] [address] 03/17/2021 00:00:00 03/17/2021 13:46:37 [id number] [facility] [address] [place] [address] 03/31/2022 00:00:00 03/31/2022 13:27:57 [id number] Shruthi Arreola MD [facility] [address] [place] [address] 10/07/2022 12:02:12 10/07/2022 12:31:13 Bjorn thyroiditis 23108187 E06.3 TSH and FT4 in ideal range- no indication to start on thyroid replacemen t- recommende d a thyroid supplement similar to actalin by Dr. Robby Naranjo that contains, iodine, magnesium, manganese, carnitine and other elements to help maintain endogenous thyroid function and help to reduce swelling to take in meantime to help reduce time frame to burn out and to help with fatigue, hair thinning etc. Educated a bout weight management 268809132 Z71.3 Continue on low dose phentermin e 15 mg daily as blood pressure normal and patient tolerating well- she has lost 25 pounds since 2020 and maintainin g. Discussed potential side effects such as palpitatio ns, anxiety, flutters, dizziness, dry mouth, hair loss and hypertensi on; patient advised to contact clinic with any concerns or onset of side effects of concern. Recommende d she adhere to at least 1200 calorie per day intake with multiple small 300-400 calorie meals (4-5 small meals per day) on sedentary days up to 1600 calories on days she is able to undergo moderate level activity at least 30-40 minutes with 20 minutes of that time at 70% of her target heart rate in order to reach total caloric output and assist in weight loss. She is motivated and willing to go to gym daily and discussed cutting out GMOs along with preservati ves and focusing on fruits, veggies, unprocesse d beans and nuts along with meats for the bulk of her diet. Vitamin B1 2 deficiency (non anemic) 39125120 E53.8 Continue with B12 injections weekly as patient tolerating well and does help with energy to small degree. Loss of hair 418370185 L 65.9 Continue on spironolac tone 100 mg daily as she has had increased hair growth and patient has no issues with low BP or other concerns on medication . Spent up to 25 minutes preparing to see the patient (eg, review of tests), obtaining and/or reviewing separately obtained history, performing a medically appropriat e examinatio n and evaluation , counseling and educating the patient, ordering medication s, tests, along with documentin g clinical informatio n in the electronic health record, independen tly interpreti ng results and communicat ing results to the patient. Patient can be followed by PCP - she/he is aware of my resignatio n and last day of December 10. If needed his/her PCP can refer patient to another endocrinol ogist in the area. All questions /concerns answered and refills necessary at visit today. Health Concerns Section Related Observation LastModified by Organization Detai ls LastModified Time None Recorded Concern Status LastModified by Organization Details LastModified Time None Recorded Advance Directives Directive None Recorded Payers Encounter Date Sequence Insurance Name Policy Number Policy Shankar Covered Member ID Shankar Member ID Guarantor Name 10/07/2022 1 [place] [id number] Nicolette Vaughan [id number] Nicolette Vaughan Notes Date Note Type Note Provider Name and Address Organization Details Recorded Time 10/07/2022 text/html 42 yo female com es in for follow up in management of hashimotos thyroiditis, low energy and B12 def in addition to weight management. at her last visit in Mar we continued thyroid support. we added phentermine for weight and energy. we continued B12 injections and she feels these do help She has lost 25 pounds since 2020. She has no palpitations or flutters and blood pressure in normal range on the phentermine. She is on spironolactone 100 mg daily and tolerating well and no issues with hair loss. labs from 07/20:TSH of 2.08 uIU/mlFT4 of 1.3 ng/dLFT3 of 3.4 pg/mLB12/folate normalTPO negglucose 87 mg/dLCr normalLFT normal Shruthi Arreola MD [address] [address], [place], [address], [place] [employer] 10/07/2022 12:36:24 OBGyn Episode No OBEpisode recorded.
== END 2024-05-21 13:28 | disposition home or self-care (01) ==
LOC: ANHSURGERY 13:30
PROVIDERS: PCP Family Medicine; Visit Provider Obstetrics & Gynecology
DX: R10.2 Pelvic and perineal pain (principal)
CPT/HCPCS: 36415; 85027

== ENCOUNTER 2024-05-24 00:58 | Day surgery (SDC) | payer BC, SELFPAY ==
--- NOTE | 2024-05-17 16:52 | SUR.PREOP ---
Report to the Outpatient Waiting Room, entrance under the green pavilion located off [facility], at time _0630_ on date _05/24/24_. Planned Procedure Time: _0830_.? Time changes happen often and if your time is changed the preop area will call you the afternoon before. - You and your visitor will be asked to self-screen and do not enter if you have any COVID symptoms. Please call surgeon if you need to reschedule. - A mask is optional within the hospital at this time. Patients may have clear liquids (water, carbonated beverages, clear teas, apple juice) until 3 hours (0530) prior to surgery with a maximum of 20 ounces. - No food from midnight until time of surgery and no smoking, or chewing tobacco (or any form of nicotine). No chewing gum, candy or mints. Take only the following medications with a SIP of water on the morning of surgery: _N/A_ DO NOT STOP ANY OF YOUR OTHER PRESCRIPTION MEDICATIONS PRIOR TO SURGERY EXCEPT THE FOLLOWING Hold all vitamins and supplements for 3 days per anesthesiologist. Medications to discontinue per physician _tirzepatide_ Date to take last dose _STOP NOW_ Please no make-up, nail cymro, hairspray, perfume, deodorant, or body powder the day of surgery.? No jewelry (including any body piercings) or valuables the day of surgery, leave them at home.? Please take a shower or bath the night before, or the morning of, surgery with an antibacterial soap.? Wear comfortable, loose fitting clothing. - Jewelry must be removed prior to entering the operating room.? Rings and piercings that are not removed may be cut off. - The hospital will not accept responsibility for valuables.? - Please leave all valuables, including medications, at home the day of surgery. If you are going home after surgery, a licensed service parts driver must drive you home.? - NO public transportation without another adult if you receive anesthesia. - We recommend that an adult stay with you for 24 hours following discharge. - We also recommend that you do not drive, make important decision, drink alcoholic beverages, or take any drugs that were not prescribed by your health care provider for at least 24 hours after your discharge time. Follow any additional instructions given to you from your surgeon. Telephone instructions given to _Nicolette_and asked if any additional questions and then verbalized understanding. Patient advised to call surgeon office or pre surgery nurse liaison [phone] if any additional questions.
[2024-05-17 17:06] VITALS: BMI 26.1
--- NOTE | 2024-05-23 11:30 | P.HP_ITS ---
H&P: HPI History of Present Illness Date/Time: 05/23/24 11:30 43-year-old female presents for surgical evaluation of multiple issues. First needs IUD removal and replacement, ultrasound has shown the IUD be appropriately placed. We are doing this in the OR due to discomfort in the past and IUD string not readily visualized on exam. Also has a left ovarian cyst of 5-7 cm which has persisted over the past number of months in spite of hormonal therapy. Does have some cramping discomfort on this side but generally speaking not a lot of pain or discomfort associated with the ovarian cyst. Chief Complaint: Retained IUD Review of Systems Review of Systems: All systems reviewed & are unremarkable except as noted in HPI and below PMFSH Past Medical History Medical History BMI 28.0-28.9,adult Swelling of calf (~09/12/23) right calf swelling . D-dimer negative at 0.27 on 09/12/2023. No DVT On venous Doppler study on 09/14/2023. BMI 29.0-29.9,adult Overweight (BMI 25.0-29.9) Hypersomnia Home sleep study on 01/26/2023 revealed no evidence JOEL. BMI 30.0-30.9,adult Asthma Bjorn's thyroiditis TSH 4.94, free T4 1.2, T3 total 4.0 on 01/28/2022 , Dr. Arreola. TSH 1.63, free T4 1.4, T3 total 108 on 03/28/2023. Vitamin B12 deficiency level low at 280 on 01/28/2022. Level normal at 708 with hemoglobin 14.6 on 03/28/2023. Screening mammogram, encounter for Normal mammogram 04/15/2022. Normal mammogram 05/13/2023. normal mammogram 05/15/2024. COVID-19 (02/04/22) 2nd episode tested positive 02/08/2022. BMI 32.0-32.9,adult Obesity (BMI 30.0-34.9) COVID-19 (~06/22/21) fully vaccinated and treated with monoclonal antibody infusion. Encounter for IUD removal 02/10/17 Encounter for IUD insertion 02/17/12 02/10/17 Ovarian cyst History of PCR DNA positive for HSV2 Abnormal Pap smear of cervix 08/05/2015 - LGSIL/HPV+; 04/21/16 ascus (+) hpv; 01/27/17 (+) hpv; 02-05-19 LSIL(+) hpv 02/01/2020 +hpv; 02/11/2021 Lgsil +hpv Chronic anxiety Hirsutism Testosterone level 25 on 01/28/2022. Total testosterone normal at 13 with free testosterone normal at 1.7 on 03/28/2023. Tobacco abuse Vaping nicotine. quit using tobacco products 2022 Chest congestion Acute bronchitis Cellulitis BMI 31.0-31.9,adult Seborrheic eczema of scalp Polyp of colon colon polyps on 07/05/2013 Dr. Fisher. Normal colonoscopy 09/17/2022 with recheck in 5 years. Shortness of breath Cough Elevated liver enzymes AST normal at 25 with ALT slightly elevated at 31 on 12/23/2020 GGT normal at 19, AST 17, ALT 14 on 03/28/2023. Levels normal with AST 15 and ALT 16 on 02/10/2024. Abnormal serum iron level total iron 164 with 47% saturation and ferritin 120 with hemoglobin 14.3 on 12/23/2020. iron 142 with 41% saturation and ferritin 112 on 01/28/2022. iron elevated at 206 with saturation elevated at 66% and ferritin normal at 122 on 03/28/2023. Encounter for wellness examination in adult Abdominal pain Mixed hyperlipidemia Total cholesterol 223, triglycerides 378, HDL 50, LDL 119 on 12/23/2020. Cholesterol 250, triglycerides 354, HDL 57, LDL 139 with ratio of 4.4 on 01/28/2022. Cholesterol 207, triglycerides 182, HDL 65 with LDL 112 With ratio of 3.2 on 03/28/2023. cholesterol 182, triglycerides 172, HDL 52, LDL 101 with ratio 3.5 on 02/10/2024. Seasonal allergic rhinitis Chronic thoracic back pain X-ray of the thoracic spine 07/16/2021 unremarkable. Atypical chest pain Hypercholesterolemia with hyperglyceridemia Allergies Surgical History Surgical History History of gynecologic surgery 10/13 cervical acid wash History of colposcopy with cervical biopsy 03/09/1708/2015 History of colonoscopy with polypectomy 07-05-2013 polyps and internal hemorrhoids (recommendation to repeat in 5 years), flat polyps - proximal ascending colon, transverse colon and distal sigmoid colon; internal hemorrhoids H/O shoulder surgery 04/29/15 lt shoulder bone spurs 03/2014 lt shoulder Family History Family History Mother Family history of thyroid disease Father Hypertension Diabetes mellitus Social History Social History Smoking packs per day: 0.5 Smoking cigarettes per day: 10.0 Years smoked: 15 Smoking pack-years: 7.50 Smoking status: Never smoker Tobacco type: cigarettes Second hand tobacco smoke exposure: No Smoking end date: 02/28/01 Alcohol intake: current Drinks per week: 2 Alcohol use details: OCCASIONAL Substance use: never Substance use type: does not use Other substance usage details: CBD gummies Do You Feel Safe in your Home?: Yes Lack of Transportation: No Lack of Food: Never True Current Housing: I Have Housing Concerned About Future Housing: No Difficulty Paying Gas/Electric Bills: No Difficulty Paying for Meds: No Currently Unemployed: No Education: Bachelor's Degree Difficulty w/ Childcare or Family Care: No Living arrangements: with family Additional living arrangements comments: with children Occupation/Education: occupation 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 Gender identity (if verbalized by the patient): Female Sexual Orientation (if Verbalized by the Patient): Straight or Heterosexual Spiritual care concerns: No Meds Home Medications and Allergies Home Medications ?Medication ?Instructions ?Recorded ?Confirmed ?Type albuterol sulfate 90 mcg/actuation 2 puff inhalation Q4-6H PRN 02/16/19 05/17/24 Rx aerosol inhaler (ProAir HFA) bronchospasm #8.5 grams levonorgestrel (Mirena) 1 device intrauterine ONCE 04/01/22 05/17/24 History tirzepatide (weight loss) 2.5 2.5 mg subcut WEEKLY 09/13/23 05/17/24 History mg/0.5 mL subcutaneous pen injector (Zepbound) spironolactone 50 mg tablet 100 mg (2 x 50 mg) PO QAM #180 tabs 02/16/2405/17 Rx Allergies Allergy/AdvReac Type Severity Reaction Status Date / Time Sulfa (Sulfonamide Allergy Unknown rash Verified 05/17/24 17:12 Antibiotics) Exam Const: General: cooperative and healthy appearing Resp: Effort & Inspection: normal respiratory effort Auscultation: clear to auscultation bilaterally Cardio: Rate: regular rate Rhythm: regular rhythm GI: Inspection: normal to inspection Auscultation: normal bowel sounds : External Female Exam: normal external appearance Speculum Exam - Vagina: normal appearance of the vagina Speculum Exam - Cervix: normal appearance of the cervix ( IUD string not visualized) Bimanual exam- vagina & uterus: normal bimanual exam Bimanual Exam- Adnexa, other: Adnexal mass present ( left 5-7 cm) Assessment and Plan Assessment and plan (1) Left ovarian cyst: Code(s): N83.202 - Unspecified ovarian cyst, left side Status: Acute Assessment and Plan: laparoscopic evaluation with removal of cyst, potentially oophorectomy though unlikely (2) Retained intrauterine contraceptive device (IUD): Code(s): T83.39XA - Other mechanical complication of intrauterine contraceptive device, initial encounter Status: Acute Assessment and Plan: removal and replacement of IUD to be performed hysteroscopy as well.
[2024-05-24] VITALS (10 sets, daily range): BP systolic 88–103; BP diastolic 52–67; PULSE 51–97; RESP 12–16; TEMP 36.2–36.6; O2SAT 92–100
--- OUTSIDE RECORDS SUMMARY | 2024-05-24 01:01 | XMS_ITS | Continuity of Care Document ---
Author Organization [facility] Address [address] [place] [address] [address] [place] [address] Phone Care Team Providers Care Lap Machine Operator Name Role Phone López OD, Hermilo Unavailable Unavailable Advance Directives Directive Yes / No Effective Date File Name No Information Encounters Encounter Description Practice Location Reason(s) For Visit Diagnoses Date Provider Providers Copied on Encounter [facility], [address], [place], [place], [id number], [place] tel:[phone] [facility] No Information Aug-0 5-200 5 López OD Hermilo. [address] , [address], [place], [address], [place]. tel:[phone] Family History Family Member Type Diagnosis Age At Onset No Information Payers Payer name Insurance type Covered democrat ID Authoriza tion(s) No Information Social History Type Description Quantity Date Captured Comments Sex Female Smoking Status No Information Chief Complaint And Reason For Visit No Information Reason For Referral Reason For Referral No Information History Of Present Illness Encounter Date Complaint History Of Prese nt Illness No Information Functional Status Date Functional Assessmen t No Information Instructions Date Instruction Additional Infor mation No Information Assessments Type Assessment Date No Information Patient Care Teams Name Effective Dates (start - stop) Status Members No Information
--- OUTSIDE RECORDS SUMMARY | 2024-05-24 01:01 | XMS_ITS | Continuity of Care Document ---
Author Organization [facility] Address [address] [place] [address] Phone Care Team Providers Care Mobile Phlebotomist Name Role Phone Jairo PT,MPT,ATC, Christopher Unavailable Unavai lable Procedures Procedure Date PT RE-EVALUATION THERAPEUTIC EXERCISES NEUROMUSCULAR RE-ED HOT/COLD PACK ELECTRIC STIMULATION UNATT THERAPEUTIC EXERCISES NEUROMUSCULAR RE-ED THERAPEUTIC EXERCISES NEUROMUSCULAR RE-ED THERAPEUTIC EXERCISES NEUROMUSCULAR RE-ED HOT/COLD PACK ELECTRIC STIMULATION UNATT THERAPEUTIC EXERCISES NEUROMUSCULAR RE-ED THERAPEUTIC EXERCISES NEUROMUSCULAR RE-ED THERAPEUTIC EXERCISES NEUROMUSCULAR RE-ED PT EVALUATION THERAPEUTIC EXERCISES NEUROMUSCULAR RE-ED Advance Directives Directive Yes / No Effective Date File Name No Information Encounters Encounter Description Practice Location Reason(s) For Visit Diagnoses Date Provider Providers Copied on Encounter [facility], [address], [place], [place], [id number], tel:[phone] [place] No Information 5 Jairo [place] , [place], [place]. Referring Provider: Emil Jacobs, [address] [place] [address] [address] [place], [address]. tel:[phone] [facility], [address], [place], [place], [address], [place] tel:[phone] [place] No Information Dec-1 0-201 5 Gill Christopher. , [place], [place]. Referring Provider: Emil Jacobs, [address] [facility] [address], [place], [address]. tel:[phone] [facility], [address], [place], [place], [address], [place] tel:[phone] [place] No Information Dec-0 7-201 5 Gill Christopher. , [place], [place]. Referring Provider: Emil Jacobs, [address] [facility] [address] [facility] [address], [place], [address]. tel:[phone] [place] [address], [address], [place], [place], [address], [place] tel:[phone] [place] No Information Dec-0 3-201 5 Gill Christopher. , [place], [place]. Referring Provider: Emil Jacobs, [address] [facility] [address] [facility] [address], [place], [address]. tel:[phone] [place] [address], [address], [place], [place], [address], [place] tel:[phone] [place] No Information Dec-0 1-201 5 [place] Christopher. , [place], [place]. Referring Provider: Emil Jacobs, [address] [facility] [address] [facility] [address], [place], [address]. tel:[phone] [facility], [address], [place], [place], [address], [place] tel:[phone] [place] No Information Nov-2 5-201 5 Jairo [place]. , [place], [place]. Referring Provider: Emil Jacobs, [address] [facility] [address], [place], [address]. tel:[phone] [facility], [address], [place], [place], [address], [place] tel:[phone] [place] No Information Nov-2 3-201 5 [place], [place], [place]. Referring Provider: Emil Jacobs, [address] [facility] [address] [facility], [place], [address]. tel:[phone] [facility], [address] [facility] [address], [place], [place], [id number], tel:[phone] [place] No Information 5 [place], [place], [place]. Referring Provider: Emil Jacobs, [address] [facility] [address] [facility] [address], [place], [address]. tel:[phone] [facility], [address], [place], [place], [address], tel:[phone] [place] Pain in left shoulderMuscle weakness (generalized)Im pingement syndrome of left shoulder 5 [place], [place], [place]. Referring Provider: Emil Jacobs, [address] [facility] [address] [facility], [place], [address]. tel:[phone] Family History Family Member Type Diagnosis Age At Onset No Information Payers Payer name Insurance type Covered libertarian ID Authoriza tion(s) No Information Social History [...]
--- OUTSIDE RECORDS SUMMARY | 2024-05-24 01:01 | XMS_ITS | Referral Summary ---
Author Organization [facility] [address] [place] Address [address] [place] [address] Care Team Providers Care Floor Surfacer Name Role Phone Nitin Navarrete MD Primary Care Provider [phone] Allergies Active Allergy Reactions Criticality Noted Date [...] on file Legal Sex Female 3:52 AM HEALTH COMMISSIONER Gender Identity Not on file Sexual Orientation Not on file Last Filed Vital Signs Vital Sign Reading Time Taken Comments Blood Pressure 110/70 03/04/2023 11:14 AM HEALTH COMMISSIONER Pulse 98 03/04/2023 11:14 AM HEALTH COMMISSIONER Temperature 37.4 C (99.3 F) 03/04/2023 11:14 AM HEALTH COMMISSIONER Respiratory Rate 22 03/04/2023 11:14 AM HEALTH COMMISSIONER Oxygen Saturation 99% 03/04/2023 11:14 AM HEALTH COMMISSIONER Inhaled Oxygen Concentration - - Weight 73 kg (160 lb 14.4 oz) 03/04/2023 11:14 A M HEALTH COMMISSIONER Height 154.9 cm (5' 1 ) 03/04/2023 11:14 AM HEALTH COMMISSIONER Body Mass Index 30.4 03/04/2023 11:14 AM HEALTH COMMISSIONER Plan of Treatment Not on file Procedures [...] agrees with it. ACC# Date Time Exam [id number] Jun 09, 2015 11:53:00 [facility] [address]205 Breast US unilateral, ltd L [id number] Jun 09, 2015 12:29:00 [facility] [address]6071 Dig Breast Derrick Uziel Technologist(s): Sorin Oliveira; ; [id number] Jun 09, 2015 12:29:00 [facility] 25617 Diag Mammogram Bilateral Technologist(s): Sorin Oliveira; ; EXAMINATION: BILATERAL FULL FIELD DIGITAL DIAGNOSTIC MAMMOGRAM WITH CAD, BILATERAL DIGITAL BREAST TOMOSYNTHESIS AND LEFT BREAST SONOGRAM HISTORY: 34-year-old woman with area of palpable concern the left breast since December. MAMMOGRAM TECHNIQUE: Full field digital craniocaudal and mediolateral oblique views were obtained. Bilateral digital breast tomosynthesis. Computer Aided Detection was performed with [employer].3 version 9.3. COMPARISON: No prior. Baseline mammogram. [...] OLIVER M.D. on Jun 23 2015 1:21P [id number] Procedure Note Provider, MD Chelsie - 06/21/2016 SORIN OLIVER M.D. SARAY HAYDEN, FINAL REPORT The radiology attending physician has personally reviewed this study, and has reviewed and/or edited this written report and agrees with it. ACC# Date Time Exam [id number] Jun 09, 2015 11:53:00 [facility] 81912 Breast US unilateral, ltd L [id number] Jun 09, 2015 12:29:00 [facility] [address] Dig Breast Derrick Uziel Technologist(s): Sorin Oliveira; ; [id number] Jun 09, 2015 12:29:00 [facility] [address]1747 Diag Mammogram Bilateral Technologist(s): Sorin Oliveira; ; EXAMINATION: BILATERAL FULL FIELD DIGITAL DIAGNOSTIC MAMMOGRAM WITH CAD, BILATERAL DIGITAL BREAST TOMOSYNTHESIS AND LEFT BREAST SONOGRAM HISTORY: 34-year-old woman with area of palpable concern the left breast since December. MAMMOGRAM TECHNIQUE: Full field digital craniocaudal and mediolateral oblique views were obtained. Bilateral digital breast tomosynthesis. Computer Aided Detection was performed with [employer].3 version 9.3. COMPARISON: No prior. Baseline mammogram. [...] OLIVER M.D. on Jun 23 2015 1:21P [id number] Historical Provider MD NINA MAMMO PROCEDURES Erika l Result from Last 3 Months or Most Recently Relevant to Health Maintenance Insurance CHOICE PRF PPO [place] Care Teams Floor Surfacer Relationship Specialty Start Date End Date Nitin Navarrete MD [address] [address] [facility] - General 10/27/16
--- OUTSIDE RECORDS SUMMARY | 2024-05-24 01:01 | XMS_ITS | Clinical Summary ---
Author Organization [facility] [address] [place] [address] [place] [address] Care Team Providers Care Genomics Scientist Name Role Phone Nitin Navarrete MD Primary Care Provider [phone] Allergies Active Allergy Reactions Criticality Noted Date [...] on file Legal Sex Female 3:52 AM LEATHER PRODUCTS SUPERVISOR Gender Identity Not on file Sexual Orientation Not on file Obstetrics History Last Filed Vital Signs Vital Sign Reading Time Taken Comments Blood Pressure 110/70 03/04/2023 11:14 AM LEATHER PRODUCTS SUPERVISOR Pulse 98 03/04/2023 11:14 AM LEATHER PRODUCTS SUPERVISOR Temperature 37.4 C (99.3 F) 03/04/2023 11:14 AM LEATHER PRODUCTS SUPERVISOR Respiratory Rate 22 03/04/2023 11:14 AM LEATHER PRODUCTS SUPERVISOR Oxygen Saturation 99% 03/04/2023 11:14 AM LEATHER PRODUCTS SUPERVISOR Inhaled Oxygen Concentration - - Weight 73 kg (160 lb 14.4 oz) 03/04/2023 11:14 A M LEATHER PRODUCTS SUPERVISOR Height 154.9 cm (5' 1 ) 03/04/2023 11:14 AM LEATHER PRODUCTS SUPERVISOR Body Mass Index 30.4 03/04/2023 11:14 AM LEATHER PRODUCTS SUPERVISOR Plan of Treatment Health Maintenance Due Date [...] agrees with it. ACC# Date Time Exam [id number] Jun 09, 2015 11:53:00 [facility] [address] Breast US unilateral, ltd L [id number] Jun 09, 2015 12:29:00 [facility] [address] Dig Breast Rosi Uziel Technologist(s): Sorin Oliveira; ; [id number] Jun 09, 2015 12:29:00 [facility] 164[address] Diag Mammogram Bilateral Technologist(s): Sorin Oliveira; ; EXAMINATION: BILATERAL FULL FIELD DIGITAL DIAGNOSTIC MAMMOGRAM WITH CAD, BILATERAL DIGITAL BREAST TOMOSYNTHESIS AND LEFT BREAST SONOGRAM HISTORY: 34-year-old woman with area of palpable concern the left breast since December. MAMMOGRAM TECHNIQUE: Full field digital craniocaudal and mediolateral oblique views were obtained. Bilateral digital breast tomosynthesis. Computer Aided Detection was performed with [employer].3 version 9.3. COMPARISON: No prior. Baseline mammogram. [...] OLIVER M.D. on Jun 23 2015 1:21P [id number] Procedure Note Provider, MD Chelsie - 06/21/2016 SORIN OLIVER M.D. SARAY HAYDEN, FINAL REPORT The radiology attending physician has personally reviewed this study, and has reviewed and/or edited this written report and agrees with it. ACC# Date Time Exam [id number] Jun 09, 2015 11:53:00 [facility] [address] Breast US unilateral, ltd L [id number] Jun 09, 2015 12:29:00 [facility] [address] Dig Breast Rosi Uziel Technologist(s): Sorin Oliveira; ; [id number] Jun 09, 2015 12:29:00 [facility] [address] Diag Mammogram Bilateral Technologist(s): Sorin Oliveira; ; EXAMINATION: BILATERAL FULL FIELD DIGITAL DIAGNOSTIC MAMMOGRAM WITH CAD, BILATERAL DIGITAL BREAST TOMOSYNTHESIS AND LEFT BREAST SONOGRAM HISTORY: 34-year-old woman with area of palpable concern the left breast since December. MAMMOGRAM TECHNIQUE: Full field digital craniocaudal and mediolateral oblique views were obtained. Bilateral digital breast tomosynthesis. Computer Aided Detection was performed with [employer]3 version 9.3. COMPARISON: No prior. Baseline mammogram. [...] OLIVER M.D. on Jun 23 2015 1:21P [id number] [place] Historical Provider MD NINA MAMMO PROCEDURES Erika l Result from Last 3 Months or Most Recently Relevant to Health Maintenance Insurance [place] [employer] [place] P[place] Care Teams Genomics Scientist Relationship Specialty Start Date End Date Nitin Navarrete MD [address] [address] PCP - General 10/27/16
--- NOTE | 2024-05-24 06:57 | WPDHPUPDATE1 ---
History and Physical Update Update Date/Time: 05/24/24 06:57 History and Physical has been reviewed, including an updated exam of the patient. There are NO changes in the patient's condition. Risks, benefits, and alternatives have been discussed and questions answered. Patient agrees to proceed with procedure.
[2024-05-24] MEDS: LACTATED RINGERS 1,000 ML 30 ML IV CONT (07:05)
[2024-05-24] MEDS: KETOROLAC 15 MG/ML VIAL (*BKC) IV PUSH (07:10)
[2024-05-24] MEDS: ACETAMINOPHEN 500 MG TABLET 1000 MG PO (07:10)
[2024-05-24 08:03] LABS: BEDSIDEPREGUCG Negative (Negative)
--- NOTE | 2024-05-24 08:42 | WPDANESEPPF ---
Anes - Initial Pre Proc Eval Procedure: Operation Date: 05/24/24 08:30 Proposed Procedures p Hysteroscopy Intrauterine Device Removal with Replacement, Diagnostic Laparoscopy with Possible Laparoscopic Ovarian Cystectomy - Shayne Dubon MD Date/Time: 05/24/24 08:42 Surgeon: Shayne Dubon MD Pre Op Diagnosis: Retained IUD, Pelvic Pain Patient Data Age: 43 Gender: F Height: 1.55 m Weight: 64.15 kg Last Vital Signs Temp 36.6 C 05/24/24 06:38 Pulse 66 05/24/24 06:38 Resp 16 05/24/24 06:38 BP 97/57 L 05/24/24 07:30 Pulse Ox 100 05/24/24 06:38 O2 Del Method Room Air 05/24/24 06:38 Allergies Allergy/AdvReac Type Severity Reaction Status Date / Time Sulfa (Sulfonamide Allergy Unknown rash Verified 05/24/24 07:00 Antibiotics) Home Medications ?Medication ?Instructions ?Recorded ?Confirmed ?Type albuterol sulfate 90 mcg/actuation 2 puff inhalation Q4-6H PRN 02/16/19 05/17/24 Rx aerosol inhaler (ProAir HFA) bronchospasm #8.5 grams levonorgestrel (Mirena) 1 device intrauterine ONCE 04/01/22 05/17/24 History tirzepatide (weight loss) 2.5 2.5 mg subcut WEEKLY 09/13/23 05/17/24 History mg/0.5 mL subcutaneous pen injector (Zepbound) spironolactone 50 mg tablet 100 mg (2 x 50 mg) PO QAM #180 tabs 02/16/24 05/24/24 Rx Laboratory Tests 05/24/24 06:45 POC Urine HCG, Qual Negative (Negative) Patient hx anesthesia problems: none Family hx anesthesia problems: none Results Review: All pre-operative results and documents have been reviewed as part of the pre-operative evaluation. [facility] Past Medical History Medical History Chest congestion Atypical chest pain Cough Acute bronchitis Shortness of breath Swelling of calf (~09/12/23) right calf swelling . D-dimer negative at 0.27 on 09/12/2023. No DVT On venous Doppler study on 09/14/2023. Chronic thoracic back pain X-ray of the thoracic spine 07/16/2021 unremarkable. Cellulitis Abdominal pain Elevated liver enzymes AST normal at 25 with ALT slightly elevated at 31 on 12/23/2020 GGT normal at 19, AST 17, ALT 14 on 03/28/2023. Levels normal with AST 15 and ALT 16 on 02/10/2024. BMI 28.0-28.9,adult BMI 29.0-29.9,adult Overweight (BMI 25.0-29.9) Hypersomnia Home sleep study on 01/26/2023 revealed no evidence JOEL. BMI 30.0-30.9,adult Asthma Bjorn's thyroiditis TSH 4.94, free T4 1.2, T3 total 4.0 on 01/28/2022 , Dr. rAreola. TSH 1.63, free T4 1.4, T3 total 108 on 03/28/2023. Vitamin B12 deficiency level low at 280 on 01/28/2022. Level normal at 708 with hemoglobin 14.6 on 03/28/2023. Screening mammogram, encounter for Normal mammogram 04/15/2022. Normal mammogram 05/13/2023. normal mammogram 05/15/2024. COVID-19 (02/04/22) 2nd episode tested positive 02/08/2022. BMI 32.0-32.9,adult Obesity (BMI 30.0-34.9) COVID-19 (~06/22/21) fully vaccinated and treated with monoclonal antibody infusion. Encounter for IUD removal 02/10/17 Encounter for IUD insertion 02/17/12 02/10/17 Ovarian cyst History of PCR DNA positive for HSV2 Abnormal Pap smear of cervix 08/05/2015 - LGSIL/HPV+; 04/21/16 ascus (+) hpv; 01/27/17 (+) hpv; 02-05- LSIL(+) hpv 02/01/2020 +hpv; 02/11/2021 Lgsil +hpv Chronic anxiety Hirsutism Testosterone level 25 on 01/28/2022. Total testosterone normal at 13 with free testosterone normal at 1.7 on 03/28/2023. Tobacco abuse Vaping nicotine. quit using tobacco products 2022 BMI 31.0-31.9,adult Seborrheic eczema of scalp Polyp of colon colon polyps on 07/05/2013 Dr. Fisher. Normal colonoscopy 09/17/2022 with recheck in 5 years. Abnormal serum iron level total iron 164 with 47% saturation and ferritin 120 with hemoglobin 14.3 on 12/23/2020. iron 142 with 41% saturation and ferritin 112 on 01/28/2022. iron elevated at 206 with saturation elevated at 66% and ferritin normal at 122 on 03/28/2023. Encounter for wellness examination in adult Mixed hyperlipidemia Total cholesterol 223, triglycerides 378, HDL 50, LDL 119 on 12/23/2020. Cholesterol 250, triglycerides 354, HDL 57, LDL 139 with ratio of 4.4 on 01/28/2022. Cholesterol 207, triglycerides 182, HDL 65 with LDL 112 With ratio of 3.2 on 03/28/2023. cholesterol 182, triglycerides 172, HDL 52, LDL 101 with ratio 3.5 on 02/10/2024. Seasonal allergic rhinitis Hypercholesterolemia with hyperglyceridemia Allergies Surgical History Surgical History History of gynecologic surgery 10/13 cervical acid wash History of colposcopy with cervical biopsy 03/09/1708/2015 History of colonoscopy with polypectomy 07-05-2013 polyps and internal hemorrhoids (recommendation to repeat in 5 years), flat polyps - proximal ascending colon, transverse colon and distal sigmoid colon; internal hemorrhoids H/O shoulder surgery 04/29/15 lt shoulder bone spurs 03/2014 lt shoulder Family History Family History Mother Family history of thyroid disease Father Hypertension Diabetes mellitus Social History Social History Smoking packs per day: 0.5 Smoking cigarettes per day: 10.0 Years smoked: 15 Smoking pack-years: 7.50 Smoking status: Never smoker Tobacco type: cigarettes Second hand tobacco smoke exposure: No Smoking end date: 02/28/01 Alcohol intake: current Drinks per week: 2 Alcohol use details: OCCASIONAL Substance use: never Substance use type: does not use Other substance usage details: CBD gummies Do You Feel Safe in your Home?: Yes Lack of Transportation: No Lack of Food: Never True Current Housing: I Have Housing Concerned About Future Housing: No Difficulty Paying Gas/Electric Bills: No Difficulty Paying for Meds: No Currently Unemployed: No Education: Bachelor's Degree Difficulty w/ Childcare or Family Care: No Living arrangements: with family Additional living arrangements comments: with children Occupation/Education: occupation 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 Gender identity (if verbalized by the patient): Female Sexual Orientation (if Verbalized by the Patient): Straight or Heterosexual Spiritual care concerns: No Anes - Eval Final PreProcedure Day of Procedure 05/24/24 08:42 Patient weight: overweight Heart: regular rate and rhythm Lungs: clear to auscultation Airway: Mallampati scale class II Neurological: alert and oriented Last oral intake: >/= 8 hours ASA classification: II Emergent: no Anesthetic plan: proceed Anesthesia type and monitoring: general ETT and standard monitoring Results Review: All pre-operative results and documents have been reviewed as part of the pre-operative evaluation. Informed Consent: The patient's anesthetic plan and its attendant risks and benefits were discussed with the patient/family/POA. Questions were solicited and answers provided to the satisfaction of the patient/family/POA.
--- NOTE | 2024-05-24 09:35 | W.PM.PROC2 ---
Procedure Note - Detailed Date of Procedure 05/24/24 Pre-op Diagnosis 1. Left ovarian cyst 2. Retained IUD Post-op Diagnosis Other (1. Left paratubal cyst 2. Retained IUD ) Procedure Performed 1. Diagnostic laparoscopy 2. Left paratubal cystectomy 3. Hysteroscopic removal of IUD 4. Placement of IUD Surgeon Shayne Dubon MD Anesthesia General Findings 1. Left paratubal cyst 2. Left and right tube and ovary without abnormality 3. Hysteroscopy reveals retained IUD Description of Procedure Patient prepped draped usual manner this procedure. Cervical instruments were placed for uterine mobility throughout case. Umbilical and lower quadrant trocar sites were marked and trocars were placed under direct visualization. Instruments were placed and findings were noted as above. Specifically uterus tubes and ovaries without abnormality other than left paratubal cyst which was noted and removed without difficulty. There was a small amount of oozing from the bed of the cyst site, this was rendered hemostatic with cautery. Gas was allowed to escape, trocars removed, incisions approximated using 4-0 Monocryl. Cervix was dilated to allow the hysteroscope to be placed. Visualization of IUD was noted and this was removed. IUD was sounded to 8cm and the new IUD was placed. Mirena 52mg levonorgestrel [facility]: [id number] Lot number: [id number] Expiration date: March 2026 At this point the procedure was considered terminated the patient was sent to recovery room in stable condition. Estimated Blood Loss 10 Drains No Packing No Pathology Yes (Paratubal cyst) Complications No immediate complications Condition Stable Disposition PACU [facility] Billing Surgery - Charge Forward: Surgery Billing
[2024-05-24] MEDS: fentaNYL CITRATE INJ (*CRX) 100 MCG/2 ML VIAL 25 MCG IV PUSH ×3 (09:54→10:03)
[2024-05-24] MEDS: oxyCODONE HCL (*CRX) 5 MG TAB IR PO (10:42)
== END 2024-05-24 11:22 | disposition home or self-care (01) ==
PROVIDERS: PCP Family Medicine; Visit Provider Obstetrics & Gynecology
PROC: 0UDB8ZZ Extraction of Endometrium, Via Natural or Artificial Opening Endoscopic (ICD-10-PCS; CPT 58558; principal; 2024-05-24 08:30)
DX: T83.39XA Other mechanical complication of intrauterine contraceptive device, initial encounter (principal); N83.8 Other noninflammatory disorders of ovary, fallopian tube and broad ligament; G89.18 Other acute postprocedural pain; J45.909 Unspecified asthma, uncomplicated; E06.3 Autoimmune thyroiditis; E53.8 Deficiency of other specified B group vitamins; F41.9 Anxiety disorder, unspecified; E78.2 Mixed hyperlipidemia; G47.10 Hypersomnia, unspecified; L68.0 Hirsutism; G89.29 Other chronic pain; M54.6 Pain in thoracic spine; F12.90 Cannabis use, unspecified, uncomplicated; Y83.8 Other surgical procedures as the cause of abnormal reaction of the patient, or of later complication, without mention of misadventure at the time of the procedure; Z79.51 Long term (current) use of inhaled steroids; Z79.85 Long-term (current) use of injectable non-insulin antidiabetic drugs; Z98.890 Other specified postprocedural states; Z86.0100 Personal history of colon polyps, unspecified
CPT/HCPCS: 58662; 58579; 58300; 88305; A9270; J1100; J1596; J1885; J2250; J2270; J2405; J2704; J2710; J3010; J7120